=== PATIENT | male | born 1995 | race Caucasian/White ===

== ENCOUNTER 2021-10-31 10:14 | Emergency (ER) | payer OTHER, SELFPAY ==
[2021-10-31 10:31] VITALS: BP 116/65; PULSE 78; RESP 16; TEMP 37.2; O2SAT 99
--- NOTE | 2021-10-31 10:32 | ED.URI ---
HPI - URI/Sore Throat General Chief Complaint: Upper Respiratory Infection Stated Complaint: Sore Throat,Congestion,Fever,Headache,Body Aches History of Present Illness HPI Narrative: This is a 26 year old male that has been sick for the past night. Patient denies any shortness of breath but has a sore throat and nasal drainage. Patient states that he has taken some over the counter medication but he is not feeling any better . Patient states that he is fully vaccinated he denies any fever. Related Data Allergies Allergy/AdvReac Type Severity Reaction Status Date / Time No Known Allergies Allergy Verified 10/31/21 10:38 Review of Systems Review of Systems: sore throat, congestion , slight cough All systems reviewed & are unremarkable except as noted in HPI and below PMFSH Comments At time as signature, I have reviewed and agree with nursing past medical, social, surgical and family history. Please see nursing chart for further information. There is no relevant family history pertinent to the presenting complaint. Exam Narrative: GENERAL:Well-appearing, well-nourished, and in no acute distress. HEAD:Normocephalic EYES: PERRLA ENT: Nares clear, moderate clear rhinorrhea Mucous membranes moist.pharyngeal erythema with enlarged tonsil and copious secretion CHEST: Clear to auscultation. No respiratory distress. HEART: Regular rate and rhythm. Normal peripheral pulses. ABDOMEN: Soft, nondistended, normal active bowel sounds. EXTREMITIES: Normal range of motion. No edema. SKIN: Warm, dry, no rash. NEURO: No focal deficits. Alert and oriented x3. 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 strep negative Influenza negative Vital Signs Vital signs: Vital Signs Temperature 98.9 F 10/31/21 10:31 Pulse Rate 78 10/31/21 10:31 Respiratory Rate 16 10/31/21 10:31 Blood Pressure 116/65 10/31/21 10:31 Pulse Oximetry 99 10/31/21 10:31 Temperature 98.9 F 10/31/21 10:31 Pulse Rate 78 10/31/21 10:31 Respiratory Rate 16 10/31/21 10:31 Blood Pressure 116/65 10/31/21 10:31 Pulse Oximetry 99 10/31/21 10:31 MDM - URI/Sore Throat Differential Diagnosis Differential diagnosis: Likely upper respiratory infection, otitis media, sinusitis, viral infection, bronchitis, influenza and pharyngitis Lab Data Labs: Influenza A Screen Negative Reference Range: Negative Influenza B Screen Negative Reference Range: Negative Strep Screen Presumptive Negative *(Reference Range: Negative)* Discharge Plan Discharge Clinical Impression: Tonsillitis Patient Disposition: Home, Self-Care Condition: Stable Instructions: Antibiotic Form, Tonsillitis (ED) Additional Instructions: Take the medication as prescribed. Salt water gargles and/or may use topical anesthetic (eg. Chloraseptic spray) Take tylenol and ibuprofen as needed for pain and fever as directed. Throw away the toothbrush after 24hours of antibiotic. Follow up with primary care provider in 2-3 days if condition is not improving or seek ER visit if your child starts breathing fast/has trouble breathing, is not drinking enough fluids, will not wake up or will not interact with you. Your Influenza was negative today. Prescriptions: New amoxicillin 500 mg tablet 500 mg PO Q12H 10 Days Qty: 20 RF: 0 cetirizine [Zyrtec] 10 mg tablet 10 mg PO DAILY PRN (Reason: allergy symptoms) Qty: 30 RF: 0 Follow-up/Referrals: BITELY, [Primary Care Provider] - Stand Alone Forms: Work/School Release IP Time of Disposition: 10:54
== END 2021-10-31 11:00 | disposition home or self-care (01) ==
PROVIDERS: Emergency Provider Nurse Practitioner Family
DX: J03.90 Acute tonsillitis, unspecified (principal)
CPT/HCPCS: 87081; 87804; 87880; 99203; G0463

== ENCOUNTER 2021-11-18 10:52 | Emergency (ER) | payer OTHER, SELFPAY ==
[2021-11-18 12:05] VITALS: BP 118/63; PULSE 79; RESP 16; TEMP 37.2; O2SAT 99
--- NOTE | 2021-11-18 12:32 | ED.URI ---
HPI - URI/Sore Throat General Chief Complaint: Upper Respiratory Infection Stated Complaint: Sore Throat,Body Ache,Headache Time Seen by Provider: 11/18/21 12:32 Source: patient, RN notes reviewed and old records reviewed Mode of arrival: ambulatory Limitations: no limitations History of Present Illness HPI Narrative: 26-year-old male presents to the [facility] with complaints of sore throat, body aches and headache days. Reports 101 fever. Able to eat and drink with some discomfort. Has taken Tylenol and [id number] products with minimal relief. Denies any significant history Related Data Allergies Allergy/AdvReac Type Severity Reaction Status Date / Time No Known Allergies Allergy Verified 11/18/21 17:28 Review of Systems Review of Systems: All systems reviewed & are unremarkable except as noted in HPI and below Constitutional: Constitutional: Reports as per HPI, Reports chills and Reports fever(s) Eyes: Eyes: Reports no additional eye complaints ENT: Reports as per HPI and Reports sore throat Cardiovascular: Cardiovascular: Reports no additional cardiovascular complaints Respiratory: Respiratory: Reports no additional respiratory complaints, Denies cough and Denies dyspnea Gastrointestinal: Gastrointestinal: Reports no additional gastrointestinal complaints, Denies abdominal pain, Denies nausea and Denies vomiting Musculoskeletal: Musculoskeletal: Reports no additional musculoskeletal complaints Integumentary/Breasts: Skin/Breast: Reports system reviewed and no additional complaints, except as docu Neurologic: Reports system reviewed and no additional complaints, except as documented Psychiatric: Psychiatric: Reports no additional psychiatric complaints Allergic/Immunologic: Allergic/Immunologic: Reports no additional allergic/immunologic complaints PMFSH Past Medical History Medical History (Updated 11/18/21 @ 19:21 by Deb Ward) No significant medical problems Surgical History Surgical History (Updated 11/18/21 @ 19:21 by Deb Ward) No significant past surgical history Social History Social History (Updated 11/18/21 @ 19:21 by Deb Ward) Living arrangements: with family Gender identity (if verbalized by the patient): Male Comments At the time of my signature, I reviewed and agree with the nursing past medical, surgical, social, and family history. There is no relevant family history pertinent to the patient complaint. Exam Const: General: healthy appearing, no acute distress and alert Nutritional Appearance: well nourished Orientation/consciousness: patient oriented x3 Limitations: no limitations HENMT: Head: normal to inspection Ears: external ears normal, TM's normal bilaterally and Abnormal EAC present Face and sinus: normal facial exam Mouth: Yes Normal oral and palatal mucosa present and Yes lip normal Throat: uvula midline, abnormal tonsil bilateral erythema, exudates and hypertrophy 3+ and no uvular edema Eyes: Conjunctivae: conjunctivae normal Pupils: Equal, round and reactive pupils present Neck: Neck: normal visual inspection, no lymphadenopathy and no meningeal signs Chest: Chest palpation & inspection: normal inspection of the chest Resp: Effort & Inspection: normal respiratory effort and no use of accessory muscles Auscultation: clear to auscultation bilaterally, no crackles, no rales, no rhonchi and no wheezes Cardio: Rate: regular rate Rhythm: regular rhythm Back/Spine/Pelvis: Back: no CVA tenderness Skin: General skin exam: normal color Rashes: no rashes Wounds: no wounds Neuro: General: patient oriented x3, moves all extremities, no meningeal signs and no focal motor deficits Speech: normal speech Gait exam (Neuro): Normal gait present Extrem: General: normal to inspection Psych: Appearance: grossly normal and well kempt Mental Status: mental status grossly normal Affect: normal affect Attitude: cooperative Thought content: Y
== END 2021-11-18 13:08 | disposition home or self-care (01) ==
PROVIDERS: Emergency Provider Nurse Practitioner
DX: J02.0 Streptococcal pharyngitis (principal)
CPT/HCPCS: 87804; 87880; 99213; G0463

== ENCOUNTER 2022-04-18 13:44 | Emergency (ER) | payer OTHER, SELFPAY ==
--- NOTE | 2022-04-18 13:46 | ED.URI ---
HPI - URI/Sore Throat General Stated Complaint: nasal congestion,headache,sorethroat Time Seen by Provider: 04/18/22 13:55 Source: patient Mode of arrival: ambulatory Limitations: no limitations History of Present Illness HPI Narrative: Mr. Bartlett is a 26-year-old male patient presenting to the clinic today with complaints of sore throat, cough, nasal congestion, body aches, and headache 4 to 5 days. He denies any known exposure to anybody with COVID, flu, or strep. He denies any fever. MD elicited complaint: cough, sore throat, rhinorrhea, nasal congestion and other (Headache) Related Data Home Medications Medication Instructions Recorded Confirmed No Home Medications 04/18/22 04/18/22 Allergies Allergy/AdvReac Type Severity Reaction Status Date / Time No Known Allergies Allergy Verified 04/18/22 14:00 Review of Systems Review of Systems: Pertinent positives per HPI. Patient denies any fever, chills, rash, visual changes, dizziness, shortness of breath, chest pain, palpitations, nausea, vomiting, diarrhea, constipation, abdominal pain, or any urinary issues. PMFSH Past Medical History Medical History No significant medical problems Surgical History Surgical History No significant past surgical history Social History Social History Gender identity (if verbalized by the patient): Male Comments At the time of my signature, I reviewed and agree with the nursing past medical, surgical, social, and family history. There is no relevant family history pertinent to the patient complaint. Exam Narrative: General: Well-developed, well nourished, in no apparent distress Head: Normocephalic, atraumatic Eyes: Pupils equally round and reactive to light bilaterally, EOM intact, sclera and conjunctive clear, no discharge, lids normal Ears: TMs intact and clear, ear canals clear, no drainage, grossly hearing normal. Nose: Nares patent, clear nasal discharge, mild to moderate inflammation, no sinus tenderness. Mouth: Oral pharynx without lesions or masses, good dentition, MMM. Postnasal drip Neck: Supple, trachea midline, no enlargement of anterior or posterior cervical nodes, no thyroid masses or goiter palpable. Cardio: Regular rate and rhythm, s1 and s2 normal, no murmur appreciated. Resp: Clear to auscultation bilaterally, no rhonchi, rales, wheezing or rubs Course Course Emergency Course: Portions of this record may have been created with voice recognition software. Level of Care: Express Care Visit Vital Signs Vital signs: Vital signs reviewed MDM - URI/Sore Throat MDM Narrative Medical decision making narrative: At the time of visit patient is resting comfortably on the exam table. Influenza, COVID, and strep testing completed. All testing negative in the clinic. I suspect that the patient has a viral syndrome and supportive measures were discussed and he voiced understanding of discharge instructions and agrees to treatment plan. Differential Diagnosis Differential diagnosis: Likely upper respiratory infection, croup, sinusitis, viral infection, bronchitis, influenza and pharyngitis Discharge Plan Discharge Clinical Impression: Viral syndrome, Post-nasal drip URI (upper respiratory infection) Qualifiers: URI type: unspecified URI Qualified Code(s): J06.9 - Acute upper respiratory infection, unspecified Patient Disposition: Home, Self-Care Condition: Stable Instructions: Antibiotic Form, Viral Syndrome (ED), Cold Symptoms (ED), Postnasal Drip (DC) Additional Instructions: Strep, COVID, and influenza testing negative in the clinic. We will send strep for culture. Increase fluids and stay well hydrated Tylenol/motrin for pain/fever Flonase and OTC antihistamines(Claritin or Zyrtec) as direc
[2022-04-18 13:55] VITALS: BP 114/64; PULSE 76; RESP 18; TEMP 36.6; O2SAT 99
== END 2022-04-18 14:19 | disposition home or self-care (01) ==
PROVIDERS: Emergency Provider Nurse Practitioner Family
DX: B34.9 Viral infection, unspecified (principal); R09.82 Postnasal drip; J06.9 Acute upper respiratory infection, unspecified; Z20.822 Contact with and (suspected) exposure to COVID-19
CPT/HCPCS: 87081; 87426; 87804; 87880; 99213; C9803; G0463

== ENCOUNTER 2022-06-27 14:24 | Emergency (ER) | payer OTHER, SELFPAY ==
[2022-06-27 14:46] VITALS: BP 124/66; PULSE 100; RESP 18; TEMP 38; O2SAT 98
--- NOTE | 2022-06-27 15:31 | ED.GENADULT ---
HPI - General Adult General Chief complaint: Upper Respiratory Infection Stated complaint: cough,sorethroat,nasal congestion History of Present Illness HPI narrative: Patient is a 27-year-old male who presents to the [facility] for an evaluation of upper respiratory symptoms that have been present for 1 day. Additionally, he reports fever, productive cough, headache, and myalgias. He reports headache is temporal. Ibuprofen controls the fever and alleviates headache. Related Data Allergies Allergy/AdvReac Type Severity Reaction Status Date / Time No Known Allergies Allergy Verified 06/27/22 15:14 Review of Systems Review of Systems: Denies history of COPD, bronchitis, asthma, and pneumonia. Denies current/past tobacco use. Pertinent negatives: sweats, chills, change in appetite, fatigue, skin color changes, nasal congestion/discharge, dizziness, lymphadenopathy, sinus problems, ear pain/drainage, chest pain, heart murmurs, heart palpitations, shortness of breath, wheezing, cyanosis, hemoptysis, hoarseness, orthopnea, pleuritic pain, nausea, vomiting, diarrhea, and PMFSH Past Medical History Medical History No significant medical problems Surgical History Surgical History No significant past surgical history Social History Social History Gender identity (if verbalized by the patient): Male Comments I have reviewed and agree with the patient's past medical, surgical, social, and family hx as documented by the RN. There is no relevant family history pertinent to the presenting complaint. Exam Narrative: GENERAL: Well-appearing, well-nourished, and in no acute distress. HEAD: Normocephalic, atraumatic. No sinus tenderness or facial swelling appreciated. EYES: PERRLA and EOMI. No evidence of erythema, swelling, or drainage. ENT: Bilateral external ears and ear canals normal. Bilateral TMs are normal.No TM perforation. Nares clear, no rhinorrhea or epistaxis. Bilateral turbinates without erythema/ swelling. Mucous membranes moist and pink. Uvula is midline without erythema and swelling. No evidence of petechial rash, cobblestoning, lesions, ulcers, erythema, swelling, exudates, peritonsillar abscess, tenting, or drooling. Breath odor and voice normal. NECK: Supple. No Lymphadenopathy or nuchal rigidity appreciated. CHEST: Bilateral lung cantu are clear to auscultation. No respiratory distress. No evidence of cough or pleuritic cp upon examination. HEART: Regular rate and rhythm. No murmur, gallop, or rub heard. EXTREMITIES: Normal range of motion. No edema. SKIN: Warm, dry, no rash. NEURO: No focal deficits. Alert and oriented x3. Course Course Level of Care: Express Care Visit Vital Signs Vital signs: Vital Signs Temperature 100.4 F H 06/27/22 14:46 Pulse Rate 100 06/27/22 14:46 Respiratory Rate 18 06/27/22 14:46 Blood Pressure 124/66 06/27/22 14:46 Pulse Oximetry 98 06/27/22 14:46 Oxygen Delivery Room Air 06/27/22 14:46 Temperature 100.4 F H 06/27/22 14:46 Pulse Rate 100 06/27/22 14:46 Respiratory Rate 18 06/27/22 14:46 Blood Pressure 124/66 06/27/22 14:46 Pulse Oximetry 98 06/27/22 14:46 Oxygen Delivery Room Air 06/27/22 14:46 Medical Decision Making Differential Diagnosis Differential Diagnosis: Allergic rhinitis, ABRS, acute viral sinusitis, strep pharyngitis, nasopharyngitis, bronchitis, pneumonia, AOM, otitis externa, viral URI, influenza, covid-19 Vital Signs Vital Signs: Vital Signs Temperature 100.4 F H 06/27/22 14:46 Pulse Rate 100 06/27/22 14:46 Respiratory Rate 18 06/27/22 14:46 Blood Pressure 124/66 06/27/22 14:46 Pulse Oximetry 98 06/27/22 14:46 Oxygen Delivery Room Air 06/27/22 14:46 Temperature 100.4 F H 06/27/22 1
[2022-06-27 20:55] LABS: SARS-CoV-2 RNA PCR Negative
== END 2022-06-27 15:51 | disposition home or self-care (01) ==
PROVIDERS: Emergency Provider Nurse Practitioner Family
DX: J06.9 Acute upper respiratory infection, unspecified (principal); Z20.822 Contact with and (suspected) exposure to COVID-19
CPT/HCPCS: 87081; 87426; 87880; 99213; C9803; G0463; U0003; U0005

== ENCOUNTER 2023-03-04 12:36 | Emergency (ER) | payer OTHER, SELFPAY ==
[2023-03-04 12:44] VITALS: BP 123/60; PULSE 79; RESP 16; TEMP 36.6; O2SAT 100
[2023-03-04 12:45] VITALS: BP 123/60; PULSE 79; RESP 16; TEMP 36.6; O2SAT 100
--- NOTE | 2023-03-04 13:10 | ED.URI ---
HPI - URI/Sore Throat General Chief Complaint: Upper Respiratory Infection Stated Complaint: sore throat congestion Source: patient Mode of arrival: ambulatory Limitations: no limitations History of Present Illness HPI Narrative: Patient presents today complaining of a 2 day history of headache, sore throat, chills, body aches, congestion. Reports sore throat is worse in the mornings when he wakes up and this improves throughout the day. Denies fever or cough. He has been taking NyQuil at night with relief. Denies any known sick contacts. Related Data Home Medications Medication Instructions Recorded Confirmed No Home Medications 03/04/23 03/04/23 Allergies Allergy/AdvReac Type Severity Reaction Status Date / Time No Known Allergies Allergy Verified 06/27/22 15:14 Review of Systems Review of Systems: CONSTITUTIONAL: Denies fever, or sweats.+ body aches, chills EYES: Denies visual changes, redness, or discharge. ENT: Denies otalgia.+ sore throat, congestion, rhinorrhea CARDIOVASCULAR: Denies chest pain, palpitations, or edema. RESPIRATORY: Denies cough or dyspnea. GASTROINTESTINAL: Denies abdominal pain, nausea, vomiting, or diarrhea. GENITOURINARY: Denies dysuria or hematuria. SKIN: Denies rash, itching, or wounds. MUSCULOSKELETAL: Denies back pain, joint pain, or myalgia. NEUROLOGIC: Denies numbness, tingling, or weakness.+ headache PSYCH: Denies depression or anxiety. PMFSH Past Medical History Medical History No significant medical problems Surgical History Surgical History No significant past surgical history Social History Social History Living arrangements: with family Gender identity (if verbalized by the patient): Male Comments At time of signature, I have reviewed and agree with nursing past medical, surgical, social and family history unless otherwise noted. Please see nursing chart for further information. There is no relevant family history pertinent to the presenting complaint Exam Narrative: GENERAL: Well-appearing, well-nourished, and in no acute distress. HEAD: Normocephalic, atraumatic. EYES: EOMI. No redness or drainage. Conjunctivae normal. ENT: Mucous membranes pink and moist. Nares clear. No rhinorrhea. TMs normal bilaterally. Throat mildly erythematous without edema or exudate. Uvula midline. NECK: Normal AROM. Supple. No lymphadenopathy. CHEST: No respiratory distress. Clear to auscultation. HEART: Regular rate and rhythm. No murmur appreciated. EXTREMITIES: Normal range of motion. No edema. SKIN: Warm, dry, no rash. Capillary refill normal. Normal skin turgor. NEURO: No focal deficits. Alert and oriented x3. Gait steady. PSYCH: Normal affect. No signs of depression or anxiety. Course Course Level of Care: Express Care Visit Vital Signs Vital signs: Vital Signs Temperature 97.8 F 03/04/23 12:44 Pulse Rate 79 03/04/23 12:44 Respiratory Rate 16 03/04/23 12:44 Blood Pressure 123/60 03/04/23 12:44 Pulse Oximetry 100 03/04/23 12:44 Oxygen Delivery Room Air 03/04/23 12:44 Temperature 97.8 F 03/04/23 12:45 Pulse Rate 79 03/04/23 12:45 Respiratory Rate 16 03/04/23 12:45 Blood Pressure 123/60 03/04/23 12:45 Pulse Oximetry 100 03/04/23 12:45 Oxygen Delivery Room Air 03/04/23 12:45 Reviewed. Pt has been instructed to follow up with his PCP regarding his elevated blood pressure today. MDM - URI/Sore Throat MDM Narrative Medical decision making narrative: COVID-19, influenza, and strep throat negative. Symptoms consistent with viral URI. No prescription medications indicated at this time. Anticipatory guidance given. Differential Diagnosis Differential diagnosis: Likely upper respiratory infection, sinusitis, viral infection, infl
== END 2023-03-04 13:20 | disposition home or self-care (01) ==
PROVIDERS: Emergency Provider Nurse Practitioner
DX: J06.9 Acute upper respiratory infection, unspecified (principal); Z20.822 Contact with and (suspected) exposure to COVID-19
CPT/HCPCS: 87081; 87426; 87804; 87880; 99213; C9803; G0463

== ENCOUNTER 2023-08-28 13:36 | Emergency (ER) | payer OTHER, SELFPAY ==
--- NOTE | 2023-08-28 13:39 | ED.URI ---
HPI - URI/Sore Throat General Chief Complaint: Upper Respiratory Infection Stated Complaint: Cough,Sore Throat,Body Aches Time Seen by Provider: 08/28/23 13:43 Source: patient, RN notes reviewed and old records reviewed Mode of arrival: ambulatory Limitations: no limitations History of Present Illness HPI Narrative: 28-year-old male presents to the [facility] with complaints of sore throat, body aches cough that started Thursday. Has taken DayQuil and NyQuil yesterday. No treatment today. Reports a fever yesterday of 102. Onset (ago): day(s) (2) Related Data Allergies Allergy/AdvReac Type Severity Reaction Status Date / Time No Known Allergies Allergy Verified 08/28/23 13:37 Review of Systems Review of Systems: All systems reviewed & are unremarkable except as noted in HPI and below Constitutional: Constitutional: Reports as per HPI, Reports body ache(s), Reports fatigue, Reports fever(s) and Reports headache(s) Eyes: Eyes: Reports no additional eye complaints ENT: Reports as per HPI and Reports sore throat Cardiovascular: Cardiovascular: Reports no additional cardiovascular complaints, Denies chest pain and Denies dyspnea Respiratory: Respiratory: Reports as per HPI, Reports chest congestion, Reports cough and Denies dyspnea Gastrointestinal: Gastrointestinal: Reports no additional gastrointestinal complaints, Denies abdominal pain, Denies nausea and Denies vomiting Musculoskeletal: Musculoskeletal: Reports no additional musculoskeletal complaints Integumentary/Breasts: Skin/Breast: Reports system reviewed and no additional complaints, except as docu Neurologic: Reports system reviewed and no additional complaints, except as documented Psychiatric: Psychiatric: Reports no additional psychiatric complaints Allergic/Immunologic: Allergic/Immunologic: Reports no additional allergic/immunologic complaints [facility] Past Medical History Medical History No significant medical problems Surgical History Surgical History No significant past surgical history Social History Social History Living arrangements: with family Gender identity (if verbalized by the patient): Male Comments At the time of my signature, I reviewed and agree with the nursing past medical, surgical, social, and family history. There is no relevant family history pertinent to the patient complaint. Exam Const: General: cooperative, healthy appearing, comfortable, no acute distress, well developed, alert and well nourished Nutritional Appearance: well nourished Orientation/consciousness: patient oriented x3 Limitations: no limitations HENMT: Head: normal to inspection Ears: hearing grossly normal bilaterally, external ears normal, TM's normal bilaterally, EAC's normal and mastoids normal Face/Nose/Sinus: Normal external nose present, Normal nares present, Normal nasal mucous membranes and turbinates present, normal facial exam and face symmetric Face and sinus: normal facial exam, sinuses nontender and face symmetric Mouth: Yes Normal oral and palatal mucosa present, Yes lip normal and Yes moist mucous membranes Throat: posterior oropharynx normal, uvula midline and postnasal drainage Eyes: General: appearance normal, both eyes and all related structures Alignment and Position: alignment normal Periorbital: periorbital findings normal Pupils: Equal, round and reactive pupils present EOM: EOMs intact bilaterally Neck: Neck: normal visual inspection, full ROM, no lymphadenopathy and no meningeal signs Chest: Chest palpation & inspection: normal inspection of the chest Resp: Effort & Inspection: normal respiratory effort and able to speak in complete sentences Auscultation: clear to auscultation bilaterally, no crackles, no rales, no rhonchi and no wheezes Cardio: Rate: regula
[2023-08-28 13:43] VITALS: BP 125/61; PULSE 86; RESP 16; TEMP 36.7; O2SAT 99
== END 2023-08-28 14:01 | disposition home or self-care (01) ==
PROVIDERS: Emergency Provider Nurse Practitioner
DX: J06.9 Acute upper respiratory infection, unspecified (principal)
CPT/HCPCS: 87081; 87880; 99213; G0463

== ENCOUNTER 2023-09-20 18:25 | Emergency (ER) | payer OTHER, SELFPAY ==
[2023-09-20 18:35] VITALS: BP 128/64; PULSE 52; RESP 18; TEMP 36.7; O2SAT 99
[2023-09-20 18:36] VITALS: BP 128/64; PULSE 52; RESP 18; TEMP 36.7; O2SAT 99
--- NOTE | 2023-09-20 18:45 | ED.GENADULT ---
HPI - General Adult General Chief complaint: Ear Stated complaint: sorethroat,rt ear discomfort Time Seen by Provider: 09/20/23 18:46 Source: patient Mode of arrival: ambulatory Limitations: no limitations History of Present Illness HPI narrative: 28-year-old male presents to urgent care today with complaints of sore throat that started on the right side 3 days ago and is now painful bilaterally. Patient is also experiencing right-sided ear pain. Patient states that his is currently home with a viral upper respiratory infection and bronchitis. Patient states he had bronchitis 3 weeks ago and was treated and has not had any issues since. Patient denies fever, chills, body aches, headaches, dizziness, chest pain, chest tightness, shortness of breath and cough. Related Data Home Medications Medication Instructions Recorded Confirmed No Home Medications 09/20/23 09/20/23 Allergies Allergy/AdvReac Type Severity Reaction Status Date / Time No Known Allergies Allergy Verified 09/20/23 18:36 Review of Systems Review of Systems: CONSTITUTIONAL: Denies fever, chills, or sweats. EYES: Denies visual changes, redness, or discharge. ENT: positive rhinorrhea, negative congestion, positive sore throat, and positive right sided otalgia. CARDIOVASCULAR: Denies chest pain, palpitations, or edema. RESPIRATORY: Denies cough or dyspnea. GASTROINTESTINAL: Denies abdominal pain, nausea, vomiting, or diarrhea. GENITOURINARY: Denies dysuria or hematuria. SKIN: Denies rash or itching. MUSCULOSKELETAL: Denies back pain, joint pain, or myalgia. NEUROLOGIC: Denies headache, numbness, or weakness. PSYCHIATRIC: Denies anxiety or depression. PMFSH Past Medical History Medical History No significant medical problems Surgical History Surgical History No significant past surgical history Social History Social History Living arrangements: with family Gender identity (if verbalized by the patient): Male Exam Narrative: GENERAL: Well-appearing, well-nourished, and in no acute distress. HEAD: Normocephalic, atraumatic. EYES: PERRLA and EOMI. sclera free of injection. ENT: Nares clear, no rhinorrhea or epistaxis. Mucous membranes moist. bilateral ear cerumen impaction, unable to visualize TMs. oral mucosa pink and moist, posterior oropharynx erythema present, tonsils at +2 without exudate, postnasal drip of clear drainage present. NECK: Supple. positive bilateral submandibular lymphadenopathy CHEST: Clear to auscultation. No respiratory distress. HEART: Regular rate and rhythm. No murmur heard. Normal peripheral pulses. ABDOMEN: Soft, nontender, nondistended, normal active bowel sounds. EXTREMITIES: Normal range of motion. No edema. SKIN: Warm, dry, no rash. NEURO: No focal deficits. Alert and oriented x3. Course Course Level of Care: Express Care Visit Vital Signs Vital signs: Vital Signs Temperature 36.7 C 09/20/23 18:35 Pulse Rate 52 L 09/20/23 18:35 Respiratory Rate 18 09/20/23 18:35 Blood Pressure 128/64 09/20/23 18:35 Pulse Oximetry 99 09/20/23 18:35 Oxygen Delivery Room Air 09/20/23 18:35 Temperature 36.7 C 09/20/23 18:36 Pulse Rate 52 L 09/20/23 18:36 Respiratory Rate 18 09/20/23 18:36 Blood Pressure 128/64 09/20/23 18:36 Pulse Oximetry 99 09/20/23 18:36 Oxygen Delivery Room Air 09/20/23 18:36 vital signs reviewed Procedures Ear Wax Removal Both Ears: Ear Wax Removal Date: 09/20/23 Ear Wax Removal Time: 19:00 Cerumenolytic Used: other (Lighted curette only) Results: Re-examined: cerumen removed completely TM Examination: TM(s) intact, normal appearance Ear Canal Exam: atraumatic Patient Tolerated Procedure: well Complications: no pro
== END 2023-09-20 19:02 | disposition home or self-care (01) ==
PROVIDERS: Emergency Provider Nurse Practitioner Family
DX: J02.9 Acute pharyngitis, unspecified (principal); H61.23 Impacted cerumen, bilateral
CPT/HCPCS: 69210; 87081; 87880; 99212; G0463

== ENCOUNTER 2024-03-03 11:52 | Emergency (ER) | payer OTHER, SELFPAY ==
--- NOTE | 2024-03-03 11:58 | ED.URI ---
HPI - URI/Sore Throat General Chief Complaint: Upper Respiratory Infection Stated Complaint: Sore Throat and Congestion Time Seen by Provider: 03/03/24 11:58 Source: patient Mode of arrival: ambulatory Limitations: no limitations History of Present Illness HPI Narrative: Sravani is a 28-year-old male patient presenting to the clinic today with complaints of sore throat, cough, and nasal congestion x4 days. He reports no known fever or chills. does have strep. MD elicited complaint: cough, sore throat and nasal congestion Related Data Home Medications Medication Instructions Recorded Confirmed No Home Medications 09/20/23 03/03/24 Allergies Allergy/AdvReac Type Severity Reaction Status Date / Time No Known Allergies Allergy Verified 03/03/24 12:04 Review of Systems Review of Systems: Pertinent positives per HPI. Patient denies any fever, chills, rash, headache, visual changes, dizziness, shortness of breath, chest pain, palpitations, nausea, vomiting, diarrhea, constipation, abdominal pain, or any urinary issues. PMFSH Past Medical History Medical History No significant medical problems Surgical History Surgical History No significant past surgical history Social History Social History Living arrangements: with family Gender identity (if verbalized by the patient): Male Comments At the time of my signature, I reviewed and agree with the nursing past medical, surgical, social, and family history. There is no relevant family history pertinent to the patient complaint. Exam Narrative: General: Well-developed, well nourished, in no apparent distress Head: Normocephalic, atraumatic Eyes: Pupils equally round and reactive to light bilaterally, EOM intact, sclera and conjunctive clear, no discharge, lids normal Ears: TMs intact and clear, ear canals clear, no drainage, grossly hearing normal. Nose: Nares patent, clear discharge, no inflammation, no sinus tenderness. Mouth: Oral pharynx without lesions or masses, good dentition, MMM. Neck: Supple, trachea midline, no enlargement of anterior or posterior cervical nodes, no thyroid masses or goiter palpable. Cardio: Regular rate and rhythm, s1 and s2 normal, no murmur appreciated. Resp: Clear to auscultation bilaterally, no rhonchi, rales, wheezing or rubs Course Course Emergency Course: Portions of this record may have been created with voice recognition software. Level of Care: Express Care Visit Vital Signs Vital signs: Vital signs reviewed MDM - URI/Sore Throat MDM Narrative Medical decision making narrative: At the time of visit patient is resting comfortably on the exam table. Patient appears to be nontoxic. Labs: Strep test was obtained was negative. We will send strep for culture. Plan: I suspect patient has URI/pharyngitis. Supportive measures were discussed with the patient and they voiced understanding discharge instructions and agrees to treatment plan. Return precautions reviewed Differential Diagnosis Differential diagnosis: Likely upper respiratory infection, otitis media, sinusitis, viral infection, bronchitis, influenza, pharyngitis and other (COVID) Discharge Plan Discharge Clinical Impression: Upper respiratory infection Qualifiers: URI type: unspecified URI Qualified Code(s): J06.9 - Acute upper respiratory infection, unspecified Pharyngitis Qualifiers: Pharyngitis/tonsillitis etiology: unspecified etiology Qualified Code(s): J02.9 - Acute pharyngitis, unspecified Patient Disposition: Home, Self-Care Condition: Stable Instructions: Antibiotic Form, Pharyngitis (ED), Cold Symptoms (ED) Additional Instructions: Strep test was negative in the clinic today. We will send for culture. May take DayQuil/NyQuil for cold
[2024-03-03 12:00] VITALS: BP 118/61; PULSE 50; RESP 18; TEMP 36.8; O2SAT 100
== END 2024-03-03 12:24 | disposition home or self-care (01) ==
PROVIDERS: Emergency Provider Nurse Practitioner Family
DX: J06.9 Acute upper respiratory infection, unspecified (principal); J02.9 Acute pharyngitis, unspecified
CPT/HCPCS: 87081; 87880; 99213; G0463

== ENCOUNTER 2025-03-29 11:15 | Emergency (ER) | payer OTHER, SELFPAY ==
[2025-03-29 11:24] VITALS: BP 118/60; PULSE 54; RESP 16; TEMP 36.4; O2SAT 99
--- NOTE | 2025-03-29 11:31 | ED_ITS ---
HPI - Skin/Abscess/Foreign Bdy General Chief complaint: Skin/Abscess/Foreign Body Stated complaint: big toe irritation Time Seen by Provider: 03/29/25 11:31 Source: patient Mode of arrival: ambulatory Limitations: no limitations History of Present Illness HPI narrative: 29-year-old male presents with complaint of erythema, tenderness and swelling to left great toe. Afebrile. Patient got Medicare approximately 1 week ago. Erythema for the past 2-3 days. Has been applying Neosporin. All systems reviewed and negative except as noted above. Related Data Home Medications ?Medication ?Instructions ?Recorded ?Confirmed ?Last Taken ?Type No Home Medications 09/20/23 03/29/25 Unknown History Allergies Allergy/AdvReac Type Severity Reaction Status Date / Time No Known Allergies Allergy Verified 03/29/25 11:22 Review of Systems Review of Systems: CONSTITUTIONAL: Denies fever, chills, or sweats. EYES: Denies visual changes, redness, or discharge. ENT: Denies rhinorrhea, congestion, sore throat, or otalgia. CARDIOVASCULAR: Denies chest pain, palpitations, or edema. RESPIRATORY: Denies cough or dyspnea. GASTROINTESTINAL: Denies abdominal pain, nausea, vomiting, or diarrhea. GENITOURINARY: Denies dysuria or hematuria. SKIN: Denies rash or itching. Reports erythema, swelling and tenderness to left great toe MUSCULOSKELETAL: Denies back pain, joint pain, or myalgia. NEUROLOGIC: Denies headache, numbness, or weakness. PSYCHIATRIC: Denies anxiety or depression. All other systems reviewed are negative, except as documented in HPI. PMFSH Past Medical History Medical History No significant medical problems Surgical History Surgical History No significant past surgical history Social History Social History Living arrangements: with family Gender identity (if verbalized by the patient): Male Comments At time of signature, agree with nursing past medical, surgical, social and family history. There is no relevant family history pertinent to the presenting complaint. Exam Narrative: GENERAL: This is a well-nourished, well-developed patient, in no apparent distress. HEAD: normocephalic, atraumatic. EYES: PERRL. Sclera clear/white. Vision is grossly intact. EARS: External ears normal NOSE: External nose normal NECK: Neck supple, non-tender without lymphadenopathy, masses or thyromegaly. CARDIOVASCULAR: Regular rate and rhythm without murmurs, gallops, or rubs. RESPIRATORY: Clear to auscultation. Breath sounds equal bilaterally. No wheezes, rales, or rhonchi. SKIN: warm, Dry, intact with no suspicious lesions or rash, good texture and turgor. erythema, tenderness, swelling to lateral aspect L great toe. no fluctuance concerning for paronychia. CMS intact NEURO: awake, alert, and oriented to person, place and time. There were no obvious focal neurologic abnormalities. EXTREMITIES: No joint tenderness, effusion, or edema noted. Course Course Level of Care: Express Care Visit Vital Signs Vital signs: Vital Signs Temperature 36.4 C 03/29/25 11:24 Pulse Rate 54 L 03/29/25 11:24 Respiratory Rate 16 03/29/25 11:24 Blood Pressure 118/60 03/29/25 11:24 Pulse Oximetry 99 03/29/25 11:24 Oxygen Delivery Room Air 03/29/25 11:24 Temperature 36.4 C 03/29/25 11:24 Pulse Rate 54 L 03/29/25 11:24 Respiratory Rate 16 03/29/25 11:24 Blood Pressure 118/60 03/29/25 11:24 Pulse Oximetry 99 03/29/25 11:24 Oxygen Delivery Room Air 03/29/25 11:24 reviewed MDM - Skin/Abscess/Foreign Bdy MDM Narrative Medical decision making narrative: will treat cellulitis of left great toe with complex. patient is non-toxic appearing and is in no distress. Patient is appropriate for outpatient treatment and follow-up. Differential Diagnosis Differential diagnosis: Likely abscess of skin or subcutaneous tissue, cellulitis and other ( Paronychia) Discharge Plan Discharge Clinical Impression: Cellulitis of great toe of left foot Patient Disposition: Home Condition: Stable Instructions: Antibiotic Form, Cellulitis (ED) Additional Instructions: take antibiotic as prescribed until gone. Apply antibiotic ointment sparingly 2 to 3 times a day. Take ibuprofen or Tylenol every 6-8 hours as needed for pain. Keep clean and dry with soap and water. Follow-up with your doctor if not improving. Patient Language: Citizen [place] Prescriptions: New cephalexin 500 mg capsule 500 mg PO QID 7 Days Qty: 28 0RF mupirocin [Centany] 2 % ointment 1 applic topical BID 7 Days Qty: 15 0RF No Action No Home Medications Follow-up/Referrals: ELGIN, [Primary Care Provider] - Time of Disposition: 11:39
--- OUTSIDE RECORDS SUMMARY | 2025-03-29 12:02 | XMS_ITS | Continuity of Care Document ---
Author Name [facility] Organization [facility] Care Team Providers Care Clam Sorter Name Role Phone [facility] Unavailable Unavailable Problems Combined list of problems from Department of Defense and Veterans Affairs facilities. It does not include entries that were removed or entered in error. Problem Status Onset Date Problem Type Date of Resolution Comments Source Pain in right wrist Active 02/15/2025 Diagnosis [facility] Myopia of both eyes Active 01/03/2025 Diagnosis [facility] Preprocedural examination done Active 12/30/2024 Diagnosis [facility] Wrist pain Active 12/23/2024 Diagnosis [facility] Myopia of both eyes Active Condition 00 [facility] Regular astigmatism of both eyes Active Condition [facility] Medications Combined list of outpatient medications from Department of Defense and Veterans Affairs facilities.Medications provided include 1) outpatient medications from the last 15 months, and 2) patient-reported medications. Medication Details Route Status Patient Instructions Prescription Expires Prescription Number Last Dispense Date Ordering Provider Order Date Order Qty Source AMOXICILLIN (AMOXICILLI N), 875 MG, TABLET, ORAL, [facility] L, 100 ea. BOTTLE Active [id number] 2023 20 Pharmac y Data Transac tion Service Facilit y IBUPROFEN (ibuprofen) , 800 MG, TABLET, ORAL, TIME-CAP LABS, 500 ea. BOTTLE Active [id number] 2023 15 Pharmac y Data Transac tion Service Facilit y naproxen 500 mg oral tablet 1 tab(s), Oral, BID, PRN pain (moderat e), X 30 days, # 60 tab(s), 0 total refill(s ), Acute, 03/17/25 10:18:00 AM CDT, Pharmacy : [facility] Oral (given by mouth) Complet ed 03/17/2025 5 2024 60.0 0055C-[address] [facility] Allergies, Adverse Reactions, Alerts Combined list of allergies from Department of Defense and Veterans Affairs facilities. It does not include entries that were removed or entered in error. Substance Category Reaction Severity Reaction type Status Date Reported Comments Source No Known Allergies Drug allergy (disorder) active 03/01/2020 [facility] [address] Immunizations Combined list of available immunizations from the Department of Defense and Veterans Affairs facilities. Immunization Series Date Given Administered By Site Reaction Lot Number CVX Code Drug Senior Research Fellow Status Comments Source influenza virus vaccine, unspecified formulation 0 2021 [id number] SmithKline (SKB) complet ed influenza virus vaccine, unspecifi ed formulati on DoD Influenza, injectable, quadrivalent, preservative free 0 2020 [id number] 150 SmithKline (SKB) complet ed Influenza , injectabl e, quadrival ent, preservat patrice free DoD SARS-COV-2 (COVID-19) vaccine, mRNA, spike protein, LNP, preservative free, 30 mcg/0.3mL dose 2 2020 208 Pfizer, Inc (PFR) complet ed SARS-COV- 2 (COVID-19 ) vaccine, mRNA, spike protein, LNP, preservat patrice free, 30 mcg/0.3mL dose DoD COVID-19, mRNA, LNP-S, PF, 30 mcg/0.3 mL dose 2020 ALUL, () Not Given COVID-19, mRNA, LNP-S, PF, 30 mcg/0.3 mL dose DoD SARS-COV-2 (COVID-19) vaccine, mRNA, spike protein, LNP, preservative free, 30 mcg/0.3mL dose 0 2020 Unknown, Provider TRS 208 Pfizer, Inc (PFR) complet ed SARS-COV- 2 (COVID-19 ) vaccine, mRNA, spike protein, LNP, preservat patrice free, 30 mcg/0.3mL dose DoD hepatitis A vaccine, adult dosage 2 2019 [id number] 52 SmithKline (SKB) complet ed hepatitis A vaccine, adult dosage DoD Influenza, injectable, quadrivalent, preservative free 1 2019 [id number] 150 Seqirus (SEQ) complet ed Influenza , injectabl e, quadrival ent, preservat patrice free DoD varicella virus vaccine 2019 [id number] 21 Merck & Company Inc complet ed varicella virus vaccine 04/19/20 Given Ambulat ory Pharmac y varicella virus vaccine 2019 Jacky nguyen Arm [id number] 21 Merck & Company Inc complet ed varicella virus vaccine 04/19/20 Given Ambulat ory Pharmac y varicella virus vaccine 1 2019 BRIA LOPEZ [id number] 21 Merck (MSD) complet ed varicella virus vaccine DoD hepatitis A adult vaccine 2019 [id number] Agency [employer] ne complet ed hepatitis A adult vaccine 03/21/20 Given Ambulat ory Pharmac y varicella virus vaccine 2019 [id number] 21 Merck & Company Inc complet ed varicella virus vaccine 03/21/20 Given Ambulat ory Pharmac y measles/mumps /rubella virus vaccine 2019 [id number] 03 Merck & Company Inc complet ed measles/m umps/rube lla virus vaccine 03/21/20 Given Ambulat ory Pharmac y measles, mumps and rubella virus vaccine 1 2019 [id number] 03 Merck (MSD) complet ed measles, mumps and rubella virus vaccine DoD varicella virus vaccine 1 2019 [id number] 21 Merck (MSD) complet ed varicella virus vaccine DoD hepatitis A vaccine, adult dosage 1 2019 [id number] 52 [facility]) complet ed hepatitis A vaccine, adult dosage DoD measles virus vaccine 0 2019 05 () Not Given measles virus vaccine DoD mumps virus vaccine 0 2019 07 () Not Given mumps virus vaccine DoD hepatitis B vaccine, unspecified formulation 0 2019 45 () Not Given hepatitis B vaccine, unspecifi ed formulati on DoD influenza, injectable, quadrivalent- pf 2019 [id number] 150 Seqirus complet ed influenza , injectabl e, quadrival ent-pf 03/01/20 Given Ambulat ory Pharmac y adenovirus vaccine, live 2019 [id number] 8 143 Teva Pharmaceutica ls complet ed adenoviru s vaccine, live 03/01/20 Given Ambulat ory Pharmac y tetanus, diphtheria, acellular pertu is 2019 [id number] 115 Federal FinanceithKli ne complet ed tetanus, diphtheri a, acellular pertussis 03/01/20 Given Ambulat ory Pharmac y meningococcal A,C,Y,W-135 (MCV4P) 2019 [id number] 114 sanofi pasteur complet ed meningoco ccal A,C,Y,W-1 35 (MCV4P) 03/01/20 Given Ambulat ory Pharmac y poliovirus vaccine, inactivated 2019 [id number] 10 sanofi pasteur complet ed polioviru s vaccine, inactivat ed 03/01/20 Given Ambulat ory Pharmac y poliovirus vaccine, inactivated 1 2019 [id number] 10 Sanofi Pasteur (PMC) complet ed polioviru s vaccine, inactivat ed DoD meningococcal polysaccharid e (groups A, C, Y and W-135) diphtheria toxoid conjugate vaccine (MCV4P) 1 2019 [id number] 114 Sanofi Pasteur (PMC) complet ed meningoco ccal polysacch aride (groups A, C, Y and W-135) diphtheri a toxoid conjugate vaccine (MCV4P) DoD tetanus toxoid, reduced diphtheria toxoid, and acellular pertu is vaccine, adsorbed 1 2019 [id number] 115 Glycode (SKB) complet ed tetanus toxoid, reduced diphtheri a toxoid, and acellular pertussis vaccine, adsorbed DoD Adenovirus, type 4 and type 7, live, oral 1 2019 [id number] 8 143 [employer] (BRR) complet ed Adenoviru s, type 4 and type 7, live, oral DoD Influenza, injectable, quadrivalent, preservative free 1 2019 [id number] 349 150 Seqirus (SEQ) complet ed Influenza , injectabl e, quadrival ent, preservat patrice free DoD Results Combined list of recent chemistry, hematology and other laboratory results from Department of Defense and Veterans Affairs, ranging from 15 months to all on record, depending upon the facility. Order Name Results Value Reference Range Date Interpretation Specimen Comments Source Infectiou s Disease HIV-1/O/2 Non-Reac tive 1 (03/28/24 12:35 PM) 03/28 N Interpretiv e Data: INTERPRETAT ION: This method is a screening procedure for the detection of HIV p24 Antigen and Antibodies to HIV-1, including Group O, and/or HIV-2. NON-REACTIV E: HIV-1 antigen and HIV-1 / HIV-2 antibodies were not detected. No laboratory evidence of HIV infection. A negative test result does not exclude the possibility of exposure to or infection with HIV. HIV antibodies and/or p24 antigen may be undetectabl e in some stages of the infection and in some clinical conditions. If acute HIV infection is suspected, consider submitting another specimen to a reference laboratory for HIV-1 RNA. SCREEN REACTIVE - CONFIRMATIO N TO FOLLOW: Possible presence of HIV-1antibo dies, HIV-2 antibodies and/or HIV-1 p24 antigen. Specimen will reflex to the confirmatio n testing that fulfills the Center for Disease Control and Prevention' s HIV diagnostic algorithm. Refer to [facility] Lab Guide for additional information : https://[employer]. [facility]/ [email or web address] [email or web address]/la [email or web address] x Testing performed by Renuka simpson. [facility] [employer] Miscellan eous Sendouts Repository Sample Received (03/28/24 12:35 PM) 03/28 N [facility] [employer] Vital Signs Combined list of inpatient and outpatient Vital Signs from Department of Defense and Veterans Affairs, ranging from 12 months to all on record, depending upon the facility. Vital Sign Value Date Comments Source Peripheral Pulse Rate 53 bpm 08/26/2024 12:43:00 [facility] Mean Arterial Pressure, Calc 95 mm[Hg] 08/26/2024 12:43:00 [facility] Systolic Blood Pressure 126 mm[Hg] 08/26/2024 12:43:00 [facility] Diastolic Blood Pressure 79 mm[Hg] 08/26/2024 12:43:00 [facility] Respiratory Rate 14 br/min 08/26/2024 12:43:00 [facility] BP Site Left arm 08/26/2024 12:43:00 [facility] Temperature Oral 36.8 Aaliyah 08/26/2024 12:43:00 [facility] Blood Pressure Manual Automatic 08/26/2024 12:43:00 [facility] Mean Arterial Pressure, Calc 87 mm[Hg] 02/15/2025 14:57:00 [facility] Blood Pressure Manual Automatic 02/15/2025 14:57:00 [facility] Temperature Oral 36.8 Aaliyah 02/15/2025 14:57:00 [facility] BP Site Left arm 02/15/2025 14:57:00 [facility] Systolic Blood Pressure 115 mm[Hg] 02/15/2025 14:57:00 [facility] Diastolic Blood Pressure 73 mm[Hg] 02/15/2025 14:57:00 [facility] Respiratory Rate 16 br/min 02/15/2025 14:57:00 [facility] Peripheral Pulse Rate 48 bpm 02/15/2025 14:57:00 [facility] Peripheral Pulse Rate 63 bpm 06/06/2024 14:14:00 [facility] Respiratory Rate 16 br/min 06/06/2024 14:14:00 [facility] Mean Arterial Pressure, Calc 89 mm[Hg] 06/06/2024 14:14:00 [facility] Temperature Oral 36.5 Aaliyah 06/06/2024 14:14:00 [facility] BP Site Left arm 06/06/2024 14:14:00 [facility] Blood Pressure Manual Automatic 06/06/2024 14:14:00 [facility] Systolic Blood Pressure 116 mm[Hg] 06/06/2024 14:14:00 [facility] Diastolic Blood Pressure 76 mm[Hg] 06/06/2024 14:14:00 [facility] BP Site Left arm 12/10/2023 14:50:00 [facility] Blood Pressure Manual Automatic 12/10/2023 14:50:00 [facility] Temperature Oral 36.6 Aaliyah 12/10/2023 14:50:00 [facility] Mean Arterial Pressure, Calc 85 mm[Hg] 12/10/2023 14:50:00 [facility] Peripheral Pulse Rate 54 bpm 12/10/2023 14:50:00 [facility] Respiratory Rate 16 br/min 12/10/2023 14:50:00 [facility] Systolic Blood Pressure 112 mm[Hg] 12/10/2023 14:50:00 [facility] Diastolic Blood Pressure 72 mm[Hg] 12/10/2023 14:50:00 [facility] Blood Pressure Manual Automatic 08/19/2023 19:28:00 [facility] BP Site Left arm 08/19/2023 19:28:00 [facility] Systolic Blood Pressure 125 mm[Hg] 08/19/2023 19:28:00 [facility] Diastolic Blood Pressure 78 mm[Hg] 08/19/2023 19:28:00 [facility] Temperature Oral 36.6 Aaliyah 08/19/2023 19:28:00 [facility] Respiratory Rate 16 br/min 08/19/2023 19:28:00 [facility] Peripheral Pulse Rate 59 bpm 08/19/2023 19:28:00 [facility] Mean Arterial Pressure, Calc 94 mm[Hg] 08/19/2023 19:28:00 [facility] Respiratory Rate 16 br/min 12/23/2024 20:01:00 [facility] Mean Arterial Pressure, Calc 90 mm[Hg] 12/23/2024 20:01:00 [facility] Systolic Blood Pressure 122 mm[Hg] 12/23/2024 20:01:00 [facility] Diastolic Blood Pressure 74 mm[Hg] 12/23/2024 20:01:00 [facility] Temperature Oral 36.8 Aaliyah 12/23/2024 20:01:00 [facility] BP Site Left arm 12/23/2024 20:01:00 [facility] Blood Pressure Manual Automatic 12/23/2024 20:01:00 [facility] Peripheral Pulse Rate 52 bpm 12/23/2024 20:01:00 [facility] Encounters Combined list of: 1) Encounters from Department of Veterans Affairs facilities going backup to the last 18 months, not all VA inpatient encounters are included; 2) Encounters from the Department of Defense facilities going backup to 280 months. Location Location Details Encounter Type Encounter Number Reason For Visit Attending Provider ADM Date DC Date Status Disposition Source [facility] [place] [address] [id number] Notes Entered by: Dale DAMON 01 Mar 2020 1100 ------- ------- ------- ------- -- Strep Prophyl axis ADRI DAMON 03/01 Released w/o Limitations [facility] [place] [address]([facility] [place]) [place] [address](Opt ometry Clinic [facility]) OUTPATIENT [id number] NAYANA BERMAN 03/15 Released w/o Limitations [facility] [place] [address](O ptometr y Clinic [facility]) [place] [address](All ergy, [facility]) OUTPATIENT [id number] Notes Entered by: Hung LOPEZ 19 Apr 2020 1151 ------- ------- ------- ------- -- CORRIE Kiran 04/19 Released w/o Limitations [facility] [place] [address](A llergy, [facility]) [facility] ([facility]) OUTPATIENT [id number] Initial PHA JAVID RUBIN 08/04 Released w/o Limitations [address] [place] [address])([facility]) [address] [place] [address])([facility]) OUTPATIENT [id number] Notes Entered by: Corwin WOLFE 24 Dec 2020 0850 ------- ------- ------- ------- -- dhra1 BRYN WOLFE 12/24 Released w/o Limitations [address] [place] [address])([facility]) [address] [place] [address])(Duncan demic Virus) OUTPATIENT [id number] COVID screen Hilaryo FRED Thomas 12/24 Released w/o Limitations [address] [place] [address])(P andemic Virus) [address] [place] [address])(Duncan demic Virus) TELE CONSULT [id number] Notes Entered by: Dale SPENCER 26 Dec 2020 1233 ------- ------- ------- ------- -- COVID result EDWARD SPENCER 12/26 Other Not Elsewhere Classified [address] [place] [address])(P andemic Virus) [address] [place] [address])([facility]) TELE CONSULT [id number] ROXIE WEBB 04/[address] [place] [address])([facility]) [address] [place] [address])(Aud iology Procedure s) OUTPATIENT [id number] Notes Entered by: Hung VANN 31 May 2021 0838 ------- ------- ------- ------- -- Pre Employm ent WILEY VANN 05/31 Released w/o Limitations [address] [place] [address])(A udiolog y Procedu res) [address] [place] [address])([facility]) OUTPATIENT [id number] Notes Entered by: Corwin WOLFE 10 Jun 2021 1229 ------- ------- ------- ------- -- phaq BRYN WOLFE 06/10 Released w/o Limitations [address] [place] [address])([address] [facility]) [address] [place] [address])(Opt ometry) OUTPATIENT [id number] PAST DUE FOR ROUTINE ANNUAL EYE EXAM ASTRID MORRIS 06/20 Released w/o Limitations [address] [place] [address])(O ptometr y) [address] [place] [address])(War rior Op Med Cln Tm A Ad) TELE CONSULT [id number] Notes Entered by: LOKI RICHARD 31 Oct 2021 0727 ------- ------- ------- ------- -- NATHALIE Krishna/ Moshe / HAILY TERRELL 10/31 Referred for Appointment [address] [place] [address])(W arrior Op Med Cln Tm A Ad) [address] [place] [address])(War rior Op Med Cln Tm A Ad) TELE CONSULT [id number] Notes Entered by: AYDEE LAW 01 Nov 2021 1045 ------- ------- ------- ------- -- Sore Throat Adult/N AL Encount er-12/08/13/BERNARDO Schaefer 11/[address] [place] [address])(W arrior Op Med Cln Tm A Ad) [address] [place] [address])([facility]) OUTPATIENT [id number] Notes Entered by: Corwin WOLFE 30 Apr 2022 1611 ------- ------- ------- ------- -- phaq BRYN WOLFE 04/30 Released w/o Limitations [address] [place] [address])(1 th [facility]) [address] [place] [address] [facility])(Opt ometry) OUTPATIENT [id number] Routine Eye Exam, LYLE PINEDA 07/18 Released w/o Limitations [address] [place] [address] [facility])(O ptometr y) [address] [place] [address])(War rior Op Med Cln Tm A Ad) TELE CONSULT [id number] Notes Entered by: LOKI RICHARD 27 Aug 2022 0732 ------- ------- ------- ------- -- SX Persist / ER F/U / Nir molina/ HAILY TERRELL 08/27 Referred for Appointment [address] [place] [address])(W arrior Op Med Cln Tm A Ad) [address] [place] [address])(War rior Op Med Cln Tm A Ad) OUTPATIENT [id number] f/u TAYLOR MONROE 08/27 Released w/o Limitations [address] [place] [address] [facility])(W arrior Op Med Cln Tm A Ad) [address] [place] [address])(War rior Op Med Cln Tm A Ad) TELE CONSULT [id number] Notes Entered by: FLAVIO CHAND 02 Sep 2022 1239 ------- ------- ------- ------- -- Results STAN BIRD 09/02 Released to Self Care [address] [place] [address])(W arrior Op Med Cln Tm A Ad) [address] [place] [address])([facility]) OUTPATIENT [id number] Notes Entered by: Corwin WOLFE 25 May 2023 1601 ------- ------- ------- ------- -- BRYN Garcia 05/25 Released w/o Limitations [facility] [place] ([facility]) [id number] Pain in unspeci fied wrist MARTINE CLARKE 12/23 Discharge Disposition: Home or Self Care [facility] [id number] Encount er for other preproc edural examina hadleyrichard JOE LBEADLE 12/29 Discharge Disposition: Home or Self Care [facility] Outpatient [id number] Myopia, bilater al SAHRA STISDALE 01/03 Discharge Disposition: Home or Self Care 5C[facility]8 [facility] [id number] Pain in right wrist PINKYO NS 02/15 Discharge Disposition: Home or Self Care [facility] [id number] JEFF CHRISTIE MONS 02/15 Discharge Disposition: Home or Self Care 5A-3 [facility] Procedures Combined list of: 1) Procedures from Department of Veterans Affairs facilities going back up to thelast 18 months, not all VA non-surgical procedures are included; 2) All procedures from the Department of Defense facilities. Procedure Procedure Type Code Date Perfomer Comments Dari atwood Dr. Supervised Injection Intramuscular Supervised Injection Intramuscular 25570 ADRI DAMON [employer] [facility] Fitting Monofocals (Not For Aphakia) [employer] [facility] Fitting Monofocals (Not For Aphakia) 02189 NAYANA BERMAN Determination Of Refractive State Determination Of Refractive State 74178 NAYANA BERMAN Screening Test Of Visual Acuity, Quantitative, Bilateral Screening Test Of Visual Acuity, Quantitative, Bilateral 33126 NAYANA BERMAN DoD Vaccines Viral Varicella (Active) Vaccines Viral Varicella (Active) 90858 BRIA LOPEZ Varicella; Series #: 1; 0.5 mL; SC; Left Arm; g: [facility]; Lot: [id number]; VIS given (Pedro Pablo: 07/07/2019). DoD Immunization Administration One Vaccine Immunization Administration One Vaccine 50205 BRIA LOPEZ [facility] Non-Physician Phone Call To Patient/Provider Brief (5-10min) Non-Physician Phone Call To Patient/Provider Brief (5-10min) 52670 EDWARD SPENCER [facility] Ophthalmological New Patient Start Comprehensive Care Ophthalmological New Patient [facility] 40475 ASTRID MORRIS [facility] Ophthalmological Prior Patient Start [facility] Ophthalmological Prior Patient Start [facility] Care 56745 LYLE PINEDA [facility] No data available for this section Ambulato ry Pharmacy Social History Combined list of available smoking, tobacco, and other social history from Department of Defense and Veterans Affairs facilities. Social History Type Response Date Comment Sourc e Sex Representation Male (finding) 08/14/2020 Un known Organization This section is an empty social history section. [facility] Tobacco Never-cigarette user Cigarette use:. Never-other tobacco user (not cigarettes) Other Tobacco use:. Ambulatory Pharmacy Sexual Orientation Ambula tory Pharmacy Gender identity Ambulator y Pharmacy Assessment and Plan Combined list of future care activities from Department of Defense and Veterans Affairs facilities (e.g., assessment and plan notes, appointments, orders, and referrals). Additional future care activities may be listed in the Plan of Care section. Result Assessment and Plan Date Source Assessment and Plan Extracted from:Title : [facility] R Wrist Pain Author: JEFF CHRISTIANSON PA Date: 02/15/25 1. P ain in right wrist 29 y/o male with acute pain in right wrist after hyperextension injury to first and second digits.? On exam snuffbox tenderness and tenderness to palpation at CMC and 2nd MCP joints. N o worrisome symptoms for infection, or systemic joint process. Given traumatic onset and snuffbox tenderness recommend completion of plain films of the wrist and hand. Placed in a thumb spica. Begin care with occupational therapy, consult placed - Handout given on home exercises to complete - F/u to review imaging Ordered: naproxen(naproxen 500 mg oral tablet), 1 tab(s), Oral, BID, PRN pain (moderate), X 30 days, # 60 tab(s), 0 total refill(s), Acute, 03/17/2025, Pharmacy: [facility] [Not filled] XR Hand Complete 3+ Views Right XR Wrist Complete 3+ Views Right Referral Request 2.0 - DoD The patient (is) World [employer] Qualified. AM Dispo: Non-Fly Cleared for AF[employer]/MOS Duties: Y es Cleared for continued service: Yes Cleared for mobility duties: Yes Cleared for participation in physical fitness program: Yes PHA/MHA/DRHA: UTD Visit deployment related: No Profile Reviewed N/A MEB in progress: No IMR/ASIMS Status: Cristina Christianson, BSC, PA-C [facility] ([facility]) [facility] Please note that this dictation was completed with computer voice recognition software, [employer]. Quite often unanticipated grammatical, syntax, homophones, and other interpretive errors are inadvertently transcribed by the computer software. Please disregard these errors and excuse any errors that have escaped final proofreading. If are any questions regarding documentation, please contact this provider directly. Extracted from:Title: CRS- Review Author: SAHRA ARCE MD, Ophthalmology Date: 01/03/25 1. M yopia of both eyes Extracted from:Title: Optometry- CRS workup Author: HEATH RODRIGUEZ OD, Optometry Date: 12/29/24 1. P reprocedural examination done P atient appears to be good candidate for CRS. Discussed RBA of CRS with patient and explained procedures and performed all workup testing. Patient given a pplication to submit to surgical center of choice. See clinical images. Instructed to c ontact clinic a fter surgery to ensure profile, order meds if necessary, and schedule 1 month post-op. Patient acknowledges all, all questions answered. Instructed to remain out of CLs until surgery scheduled. If not a candidate at surgical site, maintain annual exams with optometry. D iagnosis: 1 . P reprocedural examination done Comment: Ordered: Computerized Corneal Topography Uni/Bi [id number]; 12/29/2024 08:54:00 LEATHER GOODS I ASSEMBLER, Preprocedural examination done ? OPHTHAL U/S,DX;CORN PACHYMETRY 59594; 12/29/2024 08:54:00 LEATHER GOODS I ASSEMBLER, Preprocedural examination done ? Determination Refractive State [id number]; 12/29/2024 08:54:00 LEATHER GOODS I ASSEMBLER, Preprocedural examination done ? Ophthalmological Medical Xm&[place] 1 [id number]; 12/29/2024 08:54:00 LEATHER GOODS I ASSEMBLER, Preprocedural examination done End of Orders Extracted from:Title: [facility] Wrist injury f/u Author: MARTINE BIANCHI PA Date: 12/23/24 1. W rist pain [age]-year-old male presents to clinic to discuss left wrist injury that occurred over a month ago. Patient states that while he was getting up from a laying down position he used his closed fist on the ground as support and felt the bones in his hand/wrist shift with accompanying pain/swelling. Patient thought he had sprained his wrist. He went to the emergency room and had imaging completed with no findings of fracture. Patient was wearing a brace and symptoms have subsided since then. Patient denies any pain at appointment today. Patient denies any current pain, p aresthesias of the fingers, weakness, joint deformity. -Discussed with patient importance of wrist strengthening exercises -Avoiding aggravating activities or activities that will put more pressure on his wrists -Follow-up if new wrist pain/swelling The patient (is) World [employer] Qualified. 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 Quite often unanticipated grammatical, syntax, homophones, and other interpretive errors are inadvertently transcribed by the computer software. Please disregard these errors and excuse any errors that have escaped final proofreading. If are any questions regarding documentation, please contact this provider directly. Extracted from:Title: Optometry- CEE Author: HEATH RODRIGUEZ OD Date: 12/4/24 1. M yopia of both eyes S pectacle rx released today. Final rx = Manifest. Below glasses ordered in SRTS. Discussed adaptation time to new lenses and proper wear. Discussed 2 pair requirement (DOD).? Measurements of anatomical facial characteristics and laboratory specifications were taken for glasses and final adjustment was made to the visual axes and anatomical topography of the patient at patients request upon delivery. OD: -1.00-1.31z983 OS: -0.75-1.71f972 pd:63 Harper 54 Re-released haibtual lens rx - given today. Discussed proper wear/care of lenses. Instructed hand washing, not sleeping/showering/swimming in lenses and correct solutions. Discussed improper wear can lead to permanent vision loss. Replacement time: 2 weeks. Will adjust in future if required?if member doesnt undergo CRS. Avaira Vitality 8.5/14.5 OD: -0.75-1.71v208 OS: - 0.75-0.09q915 Patient appears to be a good candidate for corneal refractive surgery. Patient was emailed the application, edu to return the paperwork once (s)he obtains CC authorization and complete forms. - Once finished, S tate Optometry w ill schedule patient to return for completion of testing/application with dilation after contact lenses have been out for 2 weeks. All questions answered to include [employer] specific process and r/b/a of surgery. Good ocular health today undilated; pt educated on exam findings without further questions. Recommend dilated eye exam a t next comprehensive eye exam. 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 HEATH RODRIGUEZ, Lt Col, OD It Coordinator [place], [place] 2. R egular astigmatism of both eyes Ordered: Determination Refractive State [id number]; 10/26/2024 13:54:00 LEATHER GOODS I ASSEMBLER ? Rx+Fitg C-Lens Supvj Crnl Lens Ou Xcpt Aphk [id number]; 10/26/2024 13:54:00 LEATHER [employer] I ASSEMBLER ? Fitting Spectacles Xcpt Aphakia Monofocal [id number]; 10/26/2024 13:54:00 LEATHER GOODS I ASSEMBLER ? Ophthalmological Medical Xm&Eval Compre New Pt 1/> Vst [id number]; 10/26/2024 13:54:00 LEATHER [employer] I ASSEMBLER End of Orders Extracted from:Title: [facility] Foreign Body Author: JEFF CHRISTIANSON PA Date: 08/26/24 1. F oreign body 29-year-old male with foreign body sensation following ingestion of oral supplement. Continues to persist one week after. Concern for erosive esophagitis, less likely an airway obstruction. Given these concerns recommend urgent evaluation in the ER. Patient to drive POV - Follow-up with PCM after ER evaluation Capt Jeff Christianson, BSC, PASparkleC [facility] ([facility]) [place] Please note that this dictation was completed with computer voice recognition software, Mercateo. Quite often unanticipated grammatical, syntax, homophones, and other interpretive errors are inadvertently transcribed by the computer software. Please disregard these errors and excuse any errors that have escaped final proofreading. If are any questions regarding documentation, please contact this provider directly. Extracted from:Title: [facility] - RIGHT Anterior Choudhury Pain Author: LAYNE KEYES MD Date: 06/06/24 1. A nterior choudhury splints Acute, unresolved Medial sided pain of anterior tibia. Suspect overuse related to recent hockey tournament play. Likely overlap with boot fitting for skating given height of location with most pain Trial NSAIDs/Tylenol for pain as desired, previous ED xr negative. Low concern for stress injury now given not overly localized and not significant limitation/increase in volume of training Follow up in 2-4 weeks if not improving with activity modification, consider repeat imaging then and PT Return to clinic precautions provided The patient (is ) World [employer] Qualified. 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 Visit deployment related: N o Profile Reviewed MEB in progress: No IMR/ASIMS Status: [X] RED (Action: Member is currently OVERDUE for dental, notified to take action/or addressed overdue items) Patient is in agreement with the plan and voiced understanding. Layne Keyes MD, CAQSM LAWRENCE Moreno, Sports/Family Medicine Physician [address] Glenn [facility] Faculty Physician This note was dictated using StyleSeek dictation software. While it was proofread for errors, there may still be grammatical and dictation errors. 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 Patient s PHAQ responses suggest there WERE NO Priority items requiring immediate action. Retention Waiver: no Profile: No Medications: Magnesium, Zinc, Vitamin D3, Vitamin K2, Multi vitamin Medication List Active Medications No Active Medications Found Medications Inactivated in the Last 72 Hours No medications found. 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 Yes VA Disability Rating: No If yes please update below. 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 Member seen on 22 March at the ED for leg pain. I have asked for documentation. Member has nothing more to report. PHAQ ready for PCM review and signature. Extracted from:Title: [facility] - Left quadricep contusion Author: SREEKANTH SANTIAGO MD Date: 12/10/23 1. L eft knee pain PCM Piña 28 y.o. [address] male seen for left thigh and knee pain. Healthy and fit member, had been playing hockey on Thursday and took an opposing player's knee to his left quad with immediate pain, although able to weight bear. Took the r est of that quarter off to sit down and rest, but was able to resume play after that. Per member has been wearing a compression stocking and although had ecchymoses on Thursday, has resolved b y visit today, likely due in part to rapid start of compression. Able to weightbear and pain IS i mproving, but wanted to just make sure no other issues as they play hockey weekly- he plans on taking this week off, but next session is next . On exam, member IS wearing shorts, no ecchymoses or increased erythema or effusion, does have some TTP at anterior quad, but no guarding. No pain along suprapatellar tendon or patellar tendon, no pain along joint lines, ITB or anterior choudhury. DOES have some medial hamstring discomfort but improved from prior, and while some discomfort at the medial hamstring with knee flexion against resistance, strength 5/5 and member ambulating normally -consistent with quad contusion and likely medial hamstring strain, both recovering well -while normally would recommend no competitive sports for 3-4 weeks after an injury, given rapid recovery and member feeling well, let him know it is not unreasonable to rest two weeks and play next , but to have a lower threshold to sit the game out if pain is worsening quicker than usual since he IS recovering from acute injury -did discuss role of Motrin 800mg Q8 SCHEDULED for acute sprains and strains, but in this case not required -for now, since no activity limitations no need for PT, but that would be an option if recurring injuries to the l eft leg and knee in the future -f/u with PCM as needed //SIGNED// Lt Nash YOUSSEF, [employer], , FS Sculpture Conservator, [facility] Family Physician/Flight Surgeon [place] , [facility] ain Line DSN/Comm: [id number] / [phone] [address] male. No active profiles or ALC. Consistent excellent unrestricted, next due May 2024. HIV UTD. PHA UTD. Extracted from:Title: [facility] - Neoplsm of uncertain behavior of skin Author: CARLTON PIÑA PA Date: 08/19/23 1. N eoplasm of uncertain behavior of skin 28 y/o AD M presents to clinic with 1-1.5 cm slightly hyperpigmented papule to mid-left back. Bordered are ill-defined. Noticed lesion approx 2 months ago. denies any personal history of family history of skin cancer. - Reassure patient that lesion's morphology appears benign. - Given ill-defined borders and size of lesion, refer to dermatology for further evaluation. Patient verbalized understanding and agrees w ith plan. All questions were answered. Ordered: Referral Request 2.0 2. P ain of left hip joint patient complains of acute on chronic left-sided hip pain since 2020. patient states that during an activation to support [place], he was exiting a helicopter when he slipped on ice and landed on left side and hip. Stated he thought nothing of it and hip did not bother him until he starts playing hockey approximately 6 months ago. States left hip has been bothering him since. Localizes pain to hip joint and lateral hip in proximity of the greater trochanter. Patient exhibited C-spine during physical exam. Discussed the following the patient: - We will order x-rays for further assessment of possible impingement syndrome versus malunion healed fracture. - pending x-ray results, consider referral to Ortho versus physical therapy. Ordered: XR Hip w/ Pelvis 2 or 3 Views Left 3. B ilateral wrist pain patient also complains of chronic bilateral wrist pain and pain to right CMC joint over the past 6 months ever since starting hockey again. 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 States that he has new pain experienced when playing hockey before. Particularly, with CMC feels joint is stiff in the morning and is worse while playing hockey. Discussed the plan with the patient: - Advised patient to refrain from playing hockey for the next 2-3 weeks and not to allow joints to heal. - Ordering x-rays of bilateral wrist and right thigh to further assess for possible fractures given the mechanism of injury. - If x-rays are unremarkable, consider referral to physical therapy and application of topical NSAIDs for symptom relief. - Continue RICE therapy and NSAID use as needed. Patient verbalized understanding and agrees w ith plan. All questions were answered. Ordered: XR Finger(s) 2+ Views Right XR Wrist Complete 3+ Views Right Carlton Noel Physician Dryer Operator [facility] [place], [place] 03/29/2025 [id number] [facility] Assessment and Plan Extracted from:Title : [facility] R Wrist Pain Author: JEFF CHRISTIANSON PA Date: 02/15/25 1. P ain in right wrist 29 y/o male with acute pain in right wrist after hyperextension injury to first and second digits.? On exam snuffbox tenderness and tenderness to palpation at CMC and 2nd MCP joints. N o worrisome symptoms for infection, or systemic joint process. Given traumatic onset and snuffbox tenderness recommend completion of plain films of the wrist and hand. Placed in a thumb spica. 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 AM Dispo: Non-Fly Cleared for AFSC/MOS Duties: Y es Cleared for continued service: Yes Cleared for mobility duties: Yes Cleared for participation in physical fitness program: Yes PHA/MHA/DRHA: UTD Visit deployment related: No Profile Reviewed N/A MEB in progress: No IMR/ASIMS Status: Cristina Christianson BSC, PA-C [facility] ([facility]) [place] Please note that this dictation was completed with computer voice recognition software, Mercateo. Quite often unanticipated grammatical, syntax, homophones, and other interpretive errors are inadvertently transcribed by the computer software. Please disregard these errors and excuse any errors that have escaped final proofreading. If are any questions regarding documentation, please contact this provider directly. Extracted from:Title: CRS- Review Author: SAHRA ARCE MD, Ophthalmology Date: 01/03/25 1. M yopia of both eyes Extracted from:Title: Optometry- CRS workup Author: HEATH RODRIGUEZ, JOSÉ ANTONIO, Optometry Date: 12/29/24 1. P reprocedural examination done P atient appears to be good candidate for CRS. Discussed RBA of CRS with patient and explained procedures and performed all workup testing. Patient given a pplication to submit to surgical center of choice. See clinical images. Instructed to c ontact clinic a fter surgery to ensure profile, order meds if necessary, and schedule 1 month post-op. Patient acknowledges all, all questions answered. Instructed to remain out of CLs until surgery scheduled. If not a candidate at surgical site, maintain annual exams with optometry. D iagnosis: 1 . P reprocedural examination done Comment: Ordered: Computerized Corneal Topography Uni/Bi [id number]; 12/29/2024 08:54:00 LEATHER GOODS I ASSEMBLER, Preprocedural examination done ? OPHTHAL U/S,DX;CORN PACHYMETRY 42614; 12/29/2024 08:54:00 LEATHER [employer] I ASSEMBLER, Preprocedural examination done ? Determination Refractive State [id number]; 12/29/2024 08:54:00 LEATHER [employer] I ASSEMBLER, Preprocedural examination done ? Ophthalmological Medical Xm&Eval Comprhnsv Estab Pt 1/> [id number]; 12/29/2024 08:54:00 LEATHER GOODS I ASSEMBLER, Preprocedural examination done End of Orders Extracted from:Title: [facility] Wrist injury f/u Author: MARTINE BIANCHI PA Date: 12/23/24 1. W rist pain [age]-year-old male presents to clinic to discuss left wrist injury that occurred over a month ago. Patient states that while he was getting up from a laying down position he used his closed fist on the ground as support and felt the bones in his hand/wrist shift with accompanying pain/swelling. Patient thought he had sprained his wrist. He went to the emergency room and had imaging completed with no findings of fracture. Patient was wearing a brace and symptoms have subsided since then. Patient denies any pain at appointment today. Patient denies any current pain, p aresthesias of the fingers, weakness, joint deformity. -Discussed with patient importance of wrist strengthening exercises -Avoiding aggravating activities or activities that will put more pressure on his wrists -Follow-up if new wrist pain/swelling The patient (is) [employer] Qualified. AM Dispo: Non-Fly Cleared for AFSC/MOS Duties: Yes Cleared for continued service: Y es Cleared for mobility duties: Y es Cleared for participation in physical fitness program: Y es PHA/MHA/DRHA: U TD Visit deployment related: No Profile Reviewed N /A MEB in progress: N o IMR/ASIMS Status: Martine Hare, 1st Lt, [place] [address] Please note that this dictation was completed with computer voice recognition software, Mercateo. Quite often unanticipated grammatical, syntax, homophones, and other interpretive errors are inadvertently transcribed by the computer software. Please disregard these errors and excuse any errors that have escaped final proofreading. If are any questions regarding documentation, please contact this provider directly. Extracted from:Title: Optometry- CEE Author: HEATH RODRIGUEZ, OD Date: 10/26/24 1. M yopia of both eyes S pectacle rx released today. Final rx = Manifest. Below glasses ordered in SRTS. Discussed adaptation time to new lenses and proper wear. Discussed 2 pair requirement (DOD).? Measurements of anatomical facial characteristics and laboratory specifications were taken for glasses and final adjustment was made to the visual axes and anatomical topography of the patient at patients request upon delivery. OD: -1.00-1.61x530 OS: -0.75-1.41f360 pd:63 Harper 54 Re-released haibtual lens rx - given today. Discussed proper wear/care of lenses. Instructed hand washing, not sleeping/showering/swimming in lenses and correct solutions. Discussed improper wear can lead to permanent vision loss. Replacement time: 2 weeks. Will adjust in future if required?if member doesnt undergo CRS. Avaira Vitality 8.5/14.5 OD: -0.75-1.75x257 OS: - 0.75-0.09g424 Patient appears to be a good candidate for corneal refractive surgery. Patient was emailed the application, edu to return the paperwork once (s)he obtains CC authorization and complete forms. - Once finished, S tate Optometry w ill schedule patient to return for completion of testing/application with dilation after contact lenses have been out for 2 weeks. All questions answered to include [employer] specific process and r/b/a of surgery. Good ocular health today undilated; pt educated on exam findings without further questions. Recommend dilated eye exam a t next comprehensive eye exam. 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 HEATH RODRIGUEZ, Lt Col, OD It Coordinator [place], [place] 2. R egular astigmatism of both eyes Ordered: Determination Refractive State [id number]; 10/26/2024 13:54:00 LEATHER GOODS I ASSEMBLER ? Rx+Fitg C-Lens Supvj Crnl Lens Ou Xcpt Aphk 18464; 10/26/2024 13:54:00 LEATHER [employer] I ASSEMBLER ? Fitting Spectacles Xcpt Aphakia Monofocal [id number]; 10/26/2024 13:54:00 LEATHER GOODS I ASSEMBLER ? Ophthalmological Medical Xm&Eval Compre New Pt 1/> Vst [id number]; 10/26/2024 13:54:00 LEATHER [employer] I ASSEMBLER End of Orders Extracted from:Title: [facility] Foreign Body Author: JEFF CHRISTIANSON PA Date: 08/26/24 1. F oreign body 29-year-old male with foreign body sensation following ingestion of oral supplement. Continues to persist one week after. Concern for erosive esophagitis, less likely an airway obstruction. Given these concerns recommend urgent evaluation in the ER. Patient to drive POV - Follow-up with PCM after ER evaluation Capt Jeff Christianson, PAVEL, PA-C [facility] ([facility]) [place] Please note that this dictation was completed with computer voice recognition software, Mercateo. Quite often unanticipated grammatical, syntax, homophones, and other interpretive errors are inadvertently transcribed by the computer software. Please disregard these errors and excuse any errors that have escaped final proofreading. If are any questions regarding documentation, please contact this provider directly. Extracted from:Title: [facility] - RIGHT Anterior Choudhury Pain Author: LAYNE KEYES MD Date: 06/06/24 1. A nterior choudhury splints Acute, unresolved Medial sided pain of anterior tibia. Suspect overuse related to recent hockey tournament play. Likely overlap with boot fitting for skating given height of location with most pain Trial NSAIDs/Tylenol for pain as desired, previous ED xr negative. Low concern for stress injury now given not overly localized and not significant limitation/increase in volume of training Follow up in 2-4 weeks if not improving with activity modification, consider repeat imaging then and PT Return to clinic precautions provided The patient (is ) [employer] Qualified. 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 Visit deployment related: N o Profile Reviewed MEB in progress: No IMR/ASIMS Status: [X] RED (Action: Member is currently OVERDUE for dental, notified to take action/or addressed overdue items) Patient is in agreement with the plan and voiced understanding. Layne Keyes MD, CAQSM , [employer], Sports/Family Medicine Physician [address] [facility] Family Medicine R [facility] Faculty Physician This note was dictated using [employer] dictation software. While it was proofread for errors, there may still be grammatical and dictation errors. 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 Patient s PHAQ responses suggest there WERE NO Priority items requiring immediate action. Retention Waiver: no Profile: No Medications: Magnesium, Zinc, Vitamin D3, Vitamin K2, Multi vitamin Medication List Active Medications No Active Medications Found Medications Inactivated in the Last 72 Hours No medications found. 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 Yes VA Disability Rating: No If yes please update below. 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 Member seen on 22 March at the ED for leg pain. I have asked for documentation. Member has nothing more to report. PHAQ ready for PCM review and signature. Extracted from:Title: [facility] - Left quadricep contusion Author: SREEKANTH SANTIAGO MD Date: 12/10/23 1. L eft knee pain PCM Ayana 28 y.o. [address] male seen for left thigh and knee pain. Healthy and fit member, had been playing hockey on Thursday and took an opposing player's knee to his left quad with immediate pain, although able to weight bear. Took the r est of that quarter off to sit down and rest, but was able to resume play after that. Per member has been wearing a compression stocking and although had ecchymoses on Thursday, has resolved b y visit today, likely due in part to rapid start of compression. Able to weightbear and pain IS i mproving, but wanted to just make sure no other issues as they play hockey weekly- he plans on taking this week off, but next session is next . On exam, member IS wearing shorts, no ecchymoses or increased erythema or effusion, does have some TTP at anterior quad, but no guarding. No pain along suprapatellar tendon or patellar tendon, no pain along joint lines, ITB or anterior choudhury. DOES have some medial hamstring discomfort but improved from prior, and while some discomfort at the medial hamstring with knee flexion against resistance, strength 5/5 and member ambulating normally -consistent with quad contusion and likely medial hamstring strain, both recovering well -while normally would recommend no competitive sports for 3-4 weeks after an injury, given rapid recovery and member feeling well, let him know it is not unreasonable to rest two weeks and play next , but to have a lower threshold to sit the game out if pain is worsening quicker than usual since he IS recovering from acute injury -did discuss role of Motrin 800mg Q8 SCHEDULED for acute sprains and strains, but in this case not required -for now, since no activity limitations no need for PT, but that would be an option if recurring injuries to the l eft leg and knee in the future -f/u with PCM as needed //SIGNED// SREEKANTH SANTIAGO, Lt Col, [employer], MC, FS Sculpture Conservator, [facility] Family Physician/Flight Surgeon Glenn JARA, [facility] krysta Villeda DSN/Comm: [id number] / [phone] [address] male. No active profiles or ALC. Consistent excellent unrestricted, next due May 2024. HIV UTD. PHA UTD. Extracted from:Title: [facility] - Neoplsm of uncertain behavior of skin Author: CARLTON PIÑA PA Date: 08/19/23 1. N eoplasm of uncertain behavior of skin 28 y/o AD M presents to clinic with 1-1.5 cm slightly hyperpigmented papule to mid-left back. Bordered are ill-defined. Noticed lesion approx 2 months ago. denies any personal history of family history of skin cancer. - Reassure patient that lesion's morphology appears benign. - Given ill-defined borders and size of lesion, refer to dermatology for further evaluation. Patient verbalized understanding and agrees w ith plan. All questions were answered. Ordered: Referral Request 2.0 2. P ain of left hip joint patient complains of acute on chronic left-sided hip pain since 2020. patient states that during an activation to support [place], he was exiting a helicopter when he slipped on ice and landed on left side and hip. Stated he thought nothing of it and hip did not bother him until he starts playing hockey approximately 6 months ago. States left hip has been bothering him since. Localizes pain to hip joint and lateral hip in proximity of the greater trochanter. Patient exhibited C-spine during physical exam. Discussed the following the patient: - We will order x-rays for further assessment of possible impingement syndrome versus malunion healed fracture. - pending x-ray results, consider referral to Ortho versus physical therapy. Ordered: XR Hip w/ Pelvis 2 or 3 Views Left 3. B ilateral wrist pain patient also complains of chronic bilateral wrist pain and pain to right CMC joint over the past 6 months ever since starting hockey again. 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 States that he has new pain experienced when playing hockey before. Particularly, with CMC feels joint is stiff in the morning and is worse while playing hockey. Discussed the plan with the patient: - Advised patient to refrain from playing hockey for the next 2-3 weeks and not to allow joints to heal. - Ordering x-rays of bilateral wrist and right thigh to further assess for possible fractures given the mechanism of injury. - If x-rays are unremarkable, consider referral to physical therapy and application of topical NSAIDs for symptom relief. - Continue RICE therapy and NSAID use as needed. Patient verbalized understanding and agrees w ith plan. All questions were answered. Ordered: XR Finger(s) 2+ Views Right XR Wrist Complete 3+ Views Right Carlton Noel Physician Dryer Operator [facility] [place], [place] 03/29/2025 [id number] [id number] Assessment and Plan Extracted from:Title : [facility] R Wrist Pain Author: JEFF CHRISTIANSON PA Date: 02/15/25 1. P ain in right wrist 29 y/o male with acute pain in right wrist after hyperextension injury to first and second digits.? On exam snuffbox tenderness and tenderness to palpation at CMC and 2nd MCP joints. N o worrisome symptoms for infection, or systemic joint process. Given traumatic onset and snuffbox tenderness recommend completion of plain films of the wrist and hand. Placed in a thumb spica. Begin care with occupational therapy, consult placed - Handout given on home exercises to complete - F/u to review imaging Ordered: naproxen(naproxen 500 mg oral tablet), 1 tab(s), Oral, BID, PRN pain (moderate), X 30 days, # 60 tab(s), 0 total refill(s), Acute, 03/17/2025, Pharmacy: [facility] [Not filled] XR Hand Complete 3+ Views Right XR Wrist Complete 3+ Views Right Referral Request 2.0 - DoD The patient (is) World Wide Qualified. 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 Quite often unanticipated grammatical, syntax, homophones, and other interpretive errors are inadvertently transcribed by the computer software. Please disregard these errors and excuse any errors that have escaped final proofreading. If are any questions regarding documentation, please contact this provider directly. Extracted from:Title: CRS- Review Author: SAHRA ARCE MD, Ophthalmology Date: 01/03/25 1. M yopia of both eyes Extracted from:Title: Optometry- CRS workup Author: HEATH RODRIGUEZ, OD, Optometry Date: 12/29/24 1. P reprocedural examination done P atient appears to be good candidate for CRS. Discussed RBA of CRS with patient and explained procedures and performed all workup testing. Patient given a pplication to submit to surgical center of choice. See clinical images. Instructed to c ontact clinic a fter surgery to ensure profile, order meds if necessary, and schedule 1 month post-op. Patient acknowledges all, all questions answered. Instructed to remain out of CLs until surgery scheduled. If not a candidate at surgical site, maintain annual exams with optometry. D iagnosis: 1 . P reprocedural examination done Comment: Ordered: Computerized Corneal Topography Uni/Bi [id number]; 12/29/2024 08:54:00 LEATHER GOODS I ASSEMBLER, Preprocedural examination done ? OPHTHAL U/S,DX;CORN PACHYMETRY [id number]; 12/29/2024 08:54:00 LEATHER GOODS I ASSEMBLER, Preprocedural examination done ? Determination Refractive State [id number]; 12/29/2024 08:54:00 LEATHER GOODS I ASSEMBLER, Preprocedural examination done ? Ophthalmological Medical Xm&Eval Comprhnsv Estab Pt 1/> [id number]; 12/29/2024 08:54:00 LEATHER GOODS I ASSEMBLER, Preprocedural examination done End of Orders Extracted from:Title: [facility] Wrist injury f/u Author: MARTINE BIANCHI PA Date: 12/23/24 1. W rist pain [age]-year-old male presents to clinic to discuss left wrist injury that occurred over a month ago. Patient states that while he was getting up from a laying down position he used his closed fist on the ground as support and felt the bones in his hand/wrist shift with accompanying pain/swelling. Patient thought he had sprained his wrist. He went to the emergency room and had imaging completed with no findings of fracture. Patient was wearing a brace and symptoms have subsided since then. Patient denies any pain at appointment today. Patient denies any current pain, p aresthesias of the fingers, weakness, joint deformity. -Discussed with patient importance of wrist strengthening exercises -Avoiding aggravating activities or activities that will put more pressure on his wrists -Follow-up if new wrist pain/swelling The patient (is) World Wide Qualified. 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 Quite often unanticipated grammatical, syntax, homophones, and other interpretive errors are inadvertently transcribed by the computer software. Please disregard these errors and excuse any errors that have escaped final proofreading. If are any questions regarding documentation, please contact this provider directly. Extracted from:Title: Optometry- CEE Author: HEATH RODRIGUEZ, OD Date: 10/26/24 1. M yopia of both eyes S pectacle rx released today. Final rx = Manifest. Below glasses ordered in SRTS. Discussed adaptation time to new lenses and proper wear. Discussed 2 pair requirement (DOD).? Measurements of anatomical facial characteristics and laboratory specifications were taken for glasses and final adjustment was made to the visual axes and anatomical topography of the patient at patients request upon delivery. OD: -1.00-1.36k147 OS: -0.75-1.84p878 pd:63 Harper 54 Re-released haibtual lens rx - given today. Discussed proper wear/care of lenses. Instructed hand washing, not sleeping/showering/swimming in lenses and correct solutions. Discussed improper wear can lead to permanent vision loss. Replacement time: 2 weeks. Will adjust in future if required?if member doesnt undergo CRS. Avaira Vitality 8.5/14.5 OD: -0.75-1.99w411 OS: - 0.75-0.96y707 Patient appears to be a good candidate for corneal refractive surgery. Patient was emailed the application, edu to return the paperwork once (s)he obtains CC authorization and complete forms. - Once finished, S tate Optometry w ill schedule patient to return for completion of testing/application with dilation after contact lenses have been out for 2 weeks. All questions answered to include [employer] specific process and r/b/a of surgery. Good ocular health today undilated; pt educated on exam findings without further questions. Recommend dilated eye exam a t next comprehensive eye exam. 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 HEATH RODRIGUEZ, Lt Col, OD It Coordinator Glenn [place], [place] 2. R egular astigmatism of both eyes Ordered: Determination Refractive State [id number]; 10/26/2024 13:54:00 LEATHER GOODS I ASSEMBLER ? Rx+Fitg C-Lens Supvj Crnl Lens Ou Xcpt Aphk [id number]; 10/26/2024 13:54:00 LEATHER GOODS I ASSEMBLER ? Fitting Spectacles Xcpt Aphakia Monofocal [id number]; 10/26/2024 13:54:00 LEATHER GOODS I ASSEMBLER ? Ophthalmological Medical Xm&Eval Compre New Pt 1/> Vst [id number]; 10/26/2024 13:54:00 LEATHER GOODS I ASSEMBLER End of Orders Extracted from:Title: [facility] Foreign Body Author: JEFF CHRISTIANSON PA Date: 08/26/24 1. F oreign body 29-year-old male with foreign body sensation following ingestion of oral supplement. Continues to persist one week after. Concern for erosive esophagitis, less likely an airway obstruction. Given these concerns recommend urgent evaluation in the ER. Patient to drive POV - Follow-up with PCM after ER evaluation Capt Jeff Christianson, BSParris, PA-C [facility] ([facility]) Glenn GREGORY Please note that this dictation was completed with computer voice recognition software, Mercateo. Quite often unanticipated grammatical, syntax, homophones, and other interpretive errors are inadvertently transcribed by the computer software. Please disregard these errors and excuse any errors that have escaped final proofreading. If are any questions regarding documentation, please contact this provider directly. Extracted from:Title: [facility] - RIGHT Anterior Choudhury Pain Author: LAYNE KEYES MD Date: 06/06/24 1. A nterior choudhury splints Acute, unresolved Medial sided pain of anterior tibia. Suspect overuse related to recent hockey tournament play. Likely overlap with boot fitting for skating given height of location with most pain Trial NSAIDs/Tylenol for pain as desired, previous ED xr negative. Low concern for stress injury now given not overly localized and not significant limitation/increase in volume of training Follow up in 2-4 weeks if not improving with activity modification, consider repeat imaging then and PT Return to clinic precautions provided The patient (is ) World Wide Qualified. 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 Visit deployment related: N o Profile Reviewed MEB in progress: No IMR/ASIMS Status: [X] RED (Action: Member is currently OVERDUE for dental, notified to take action/or addressed overdue items) Patient is in agreement with the plan and voiced understanding. Layne Keyes MD, CAQSM , [facility], Sports/Family Medicine Physician [address] COS/SGGF Glenn [facility] Family Medicine R esidency Faculty Physician This note was dictated using [employer] dictation software. While it was proofread for errors, there may still be grammatical and dictation errors. 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 Patient s PHAQ responses suggest there WERE NO Priority items requiring immediate action. Retention Waiver: no Profile: No Medications: Magnesium, Zinc, Vitamin D3, Vitamin K2, Multi vitamin Medication List Active Medications No Active Medications Found Medications Inactivated in the Last 72 Hours No medications found. 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 Yes VA Disability Rating: No If yes please update below. 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 Member seen on 22 March at the ED for leg pain. I have asked for documentation. Member has nothing more to report. PHAQ ready for PCM review and signature. Extracted from:Title: [facility] - Left quadricep contusion Author: SREEKANTH SANTIAGO MD Date: 12/10/23 1. L eft knee pain PCM Piña 28 y.o. [address] male seen for left thigh and knee pain. Healthy and fit member, had been playing hockey on Thursday and took an opposing player's knee to his left quad with immediate pain, although able to weight bear. Took the r est of that quarter off to sit down and rest, but was able to resume play after that. Per member has been wearing a compression stocking and although had ecchymoses on Thursday, has resolved b y visit today, likely due in part to rapid start of compression. Able to weightbear and pain IS i mproving, but wanted to just make sure no other issues as they play hockey weekly- he plans on taking this week off, but next session is next . On exam, member IS wearing shorts, no ecchymoses or increased erythema or effusion, does have some TTP at anterior quad, but no guarding. No pain along suprapatellar tendon or patellar tendon, no pain along joint lines, ITB or anterior choudhury. DOES have some medial hamstring discomfort but improved from prior, and while some discomfort at the medial hamstring with knee flexion against resistance, strength 5/5 and member ambulating normally -consistent with quad contusion and likely medial hamstring strain, both recovering well -while normally would recommend no competitive sports for 3-4 weeks after an injury, given rapid recovery and member feeling well, let him know it is not unreasonable to rest two weeks and play next , but to have a lower threshold to sit the game out if pain is worsening quicker than usual since he IS recovering from acute injury -did discuss role of Motrin 800mg Q8 SCHEDULED for acute sprains and strains, but in this case not required -for now, since no activity limitations no need for PT, but that would be an option if recurring injuries to the l eft leg and knee in the future -f/u with PCM as needed //SIGNED// SREEKANTH SANTIAGO, Col, [employer], MC, FS Sculpture Conservator, [facility] Family Physician/Flight Surgeon Glenn Toney FB, [facility] M ain Line DSN/Comm: [id number] / [phone] [address] male. No active profiles or ALC. Consistent excellent unrestricted, next due May 2024. HIV UTD. PHA UTD. Extracted from:Title: [facility] - Neoplsm of uncertain behavior of skin Author: CARLTON PIÑA PA Date: 08/19/23 1. N eoplasm of uncertain behavior of skin 28 y/o AD M presents to clinic with 1-1.5 cm slightly hyperpigmented papule to mid-left back. Bordered are ill-defined. Noticed lesion approx 2 months ago. denies any personal history of family history of skin cancer. - Reassure patient that lesion's morphology appears benign. - Given ill-defined borders and size of lesion, refer to dermatology for further evaluation. Patient verbalized understanding and agrees w ith plan. All questions were answered. Ordered: Referral Request 2.0 2. P ain of left hip joint patient complains of acute on chronic left-sided hip pain since 2020. 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 Stated he thought nothing of it and hip did not bother him until he starts playing hockey approximately 6 months ago. States left hip has been bothering him since. Localizes pain to hip joint and lateral hip in proximity of the greater trochanter. Patient exhibited C-spine during physical exam. Discussed the following the patient: - We will order x-rays for further assessment of possible impingement syndrome versus malunion healed fracture. - pending x-ray results, consider referral to Ortho versus physical therapy. Ordered: XR Hip w/ Pelvis 2 or 3 Views Left 3. B ilateral wrist pain patient also complains of chronic bilateral wrist pain and pain to right CMC joint over the past 6 months ever since starting hockey again. 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 States that he has new pain experienced when playing hockey before. Particularly, with CMC feels joint is stiff in the morning and is worse while playing hockey. Discussed the plan with the patient: - Advised patient to refrain from playing hockey for the next 2-3 weeks and not to allow joints to heal. - Ordering x-rays of bilateral wrist and right thigh to further assess for possible fractures given the mechanism of injury. - If x-rays are unremarkable, consider referral to physical therapy and application of topical NSAIDs for symptom relief. - Continue RICE therapy and NSAID use as needed. Patient verbalized understanding and agrees w ith plan. All questions were answered. Ordered: XR Finger(s) 2+ Views Right XR Wrist Complete 3+ Views Right Ayana_Carlton FORREST Physician Dryer Operator [facility] [place], [place] 03/29/2025 [id number] MDG Functional Status Combined list of recent functional and cognitive assessments recorded at [facility] [employer] [facility] (VA).VA Functional [place] Measurement (FIM) Scale: 1 = Total Assistance (Subject = 0% +), 2 = Maximal Assistance (Subject = 25% +), 3 = Moderate Assistance (Subject = 50% +), 4 = Minimal Assistance (Subject = 75% +), 5 = Supervision, 6 = Modified [place] (Device), 7 = Complete [place] (Timely, Safely). Assessment Date/Time Source Assessment Type Assessment Skill Assessment Score Assessment Details No data available for this section
--- OUTSIDE RECORDS SUMMARY | 2025-03-29 12:02 | XMS_ITS | Encounter Summary ---
Author Organization [facility] Address [address] [place] [id number] Care Team Providers Care Box Turner Name Role Phone Tuyet Blanca MD Primary Care Provider Unavailable None, Provider Primary Care Provider Unavaila ble Encounter Details Date Type Department Care Team (Late st Contact Info) Description 09/26/2017 [place] [address] Tuyet Blanca MD Social History Tobacco Use Types Packs/Day Years Used Date Smoking Tobacco: Never Assessed Sex and Gender Information Value Date Recorded Sex Assigned at Not on file Legal Sex Male 6:24 PM CDT Gender Identity Not on file Sexual Orientation Not on file documented as of this encounter Plan of Treatment Not on file documented as of this encounter Visit Diagnoses Not on filedocumented in this encounter Additional Health Concerns Infection Onset Date Last Indicated Resolved Time COVID-19 Rule Out 06/28/2023 06/28/2023 06/29/2023 10:42 AM CDT documented as of this encounter Care Teams Box Turner Relationship Specialty Start Date End Date Tuyet Blanca MD PCP - General 02/15/15 None, ProviderMD PCP - General 08/27/22 documented as of this encounter
--- OUTSIDE RECORDS SUMMARY | 2025-03-29 12:02 | XMS_ITS | Clinical Summary ---
Author Organization [facility] Address [address] [place] [id number] Care Team Providers Care Refinery Pipeline Operator Name Role Phone None, Provider MD Primary Care Provider Unavaila ble Allergies No known active allergies Medications vitamin B-12 (CYANOCOBALAMIN ) (CYANOCOBALAMIN ) 1000 mcg tablet Take 1,000 mcg by mouth nightly at bedtime. Active multivitamin (THERA) tablet Take 1 tablet by mouth nightly at bedtime. Active fluticasone propionate (FLONASE) 50 MCG/ACT nasal spray 2 sprays by Nasal route daily. 9 mL 06/28/2023 Active cetirizine (ZYRTEC ALLERGY) 10 MG tablet Take 1 tablet (10 mg total) by mouth daily. 30 tablet 06/28/2023 Active omeprazole (PRILOSEC) 20 MG capsule Take 1 capsule (20 mg total) by mouth daily. 30 capsule 08/26/2024 Active Social History Tobacco Use Types Packs/Day Years Used Date Smoking Tobacco: Never Smokeless Tobacco: Never Alcohol Use Standard Drinks/Week Comments Not Currently 0 (1 standard drink = 0.6 oz pur e alcohol) Sex and Gender Information Value Date Recorded Sex Assigned at Not on file Legal Sex Male 6:24 PM CDT Gender Identity Not on file Sexual Orientation Not on file Last Filed Vital Signs Vital Sign Reading Time Taken Comments Blood Pressure 134/67 11/19/2024 11:41 PM BODY TECHNICIAN Pulse 50 11/19/2024 11:41 PM BODY TECHNICIAN Temperature 36.6 C (97.8 F) 11/19/2024 11:41 PM BODY TECHNICIAN Respiratory Rate 18 11/19/2024 11:41 PM BODY TECHNICIAN Oxygen Saturation 98% 11/19/2024 11:41 PM BODY TECHNICIAN Inhaled Oxygen Concentration - - Weight 83.5 kg (184 lb 1.4 oz) 11/19/2024 11:41 PM BODY TECHNICIAN Height 177.8 cm (5' 10 ) 11/19/2024 11:41 PM BODY TECHNICIAN Body Mass Index 26.41 11/19/2024 11:41 PM BODY TECHNICIAN Plan of Treatment Health Maintenance Due Date Last Done Comments Annual Physical 1996 Hepatitis C 2011 Hepatitis B Vaccines (1 of 3 - 19+ 3-dose series) 2012 COVID-19 Vaccine (2023-2 5 season) 2024 08/10/2021, 07/20/2021 DTaP, Tdap and Td Vaccines ( 2 - Td or Tdap) 03/01/2030 03/01/2020 Meningococcal Vaccine Aged Out 03/01/2020 No [facility] yazmin eligible based on patient's age to complete this topic HPV Vaccines Aged Out No longer eligi ble based on patient's age to complete this topic Meningococcal B Vaccine Aged Out No l onger eligible based on patient's age to complete this topic Pneumococcal Vaccine: Pediatrics (0 to 5 Years) and At-Risk Patients (6 to 49 Years) Aged Out No longer eligible b ased on patient's age to complete this topic RSV Immunizations Under 20 Months Aged Out No longer eligible b ased on patient's age to complete this topic Insurance Care Teams Refinery Pipeline Operator Relationship Specialty Start Date End Date None, Provider, PCP - General 08/27/22
== END 2025-03-29 11:40 | disposition home or self-care (01) ==
PROVIDERS: Emergency Provider Nurse Practitioner Family
DX: L03.032 Cellulitis of left toe (principal)
CPT/HCPCS: 99213; G0463